=== PATIENT | male | born 1950 | race Caucasian/White ===

== ENCOUNTER 2020-04-29 06:13 | Outpatient (REF) | payer MEDICARE, SELFPAY ==
[2020-04-29 08:08] LABS: Alanine Aminotransferase 16 U/L (0-40); Albumin Level 4.5 g/dL (3.5-5.0); Alkaline Phosphatase 82 U/L (39-117); Anion Gap 11 (12-20); Aspartate Amino Transferase 24 U/L (5-37); Bilirubin Total 0.5 mg/dL (0.0-1.0); Blood Urea Nitrogen 13 mg/dL (9-16); Calcium 9.4 mg/dL (8.4-10.2); Carbon Dioxide 35 mmol/L (22-29); Chloride 94 mmol/L (96-108); Cholesterol 199 mg/dL; Estimated Glomerular Filt Rate > 60; Glucose Fasting 100 mg/dL (60-99); HDL Cholesterol 47 mg/dL; LDL Cholesterol Calculated 130 mg/dl; Potassium 3.9 mmol/l (3.3-5.1); Sodium 136 mmol/L (135-145); Total Protein 7.1 g/dL (6.5-8.0); Triglycerides 112 mg/dL
== END 2020-04-29 06:14 | disposition home or self-care (01) ==
LOC: HO.LAB 06:13
PROVIDERS: PCP Physician Assistant; Visit Provider Physician Assistant
DX: E78.9 Disorder of lipoprotein metabolism, unspecified (principal); I10 Essential (primary) hypertension
CPT/HCPCS: 80053; 80061

== ENCOUNTER 2020-10-29 06:05 | Outpatient (REF) | payer MEDICARE, SELFPAY ==
[2020-10-29 07:19] LABS: Hematocrit 42.4 % (42-52); Hemoglobin 13.8 g/dl (14.0-18.0); Mean Corpuscular HGB Conc 32.5 g/dl (31.0-36.0); Mean Corpuscular Hemoglobin 30.3 pg (27.0-33.0); Mean Corpuscular Volume 93.2 fL (80-98); Mean Platelet Volume 11.6 fL (9.4-12.4); Platelet Count 245 X10*3/uL (160-400); Red Blood Count 4.55 X10*6/uL (4.60-5.80); Red Cell Distribution Width 12.6 % (11.0-16.0); White Blood Count 6.9 X10*3/uL (4.8-10.8)
[2020-10-29 07:41] LABS: Alanine Aminotransferase 13 U/L (0-40); Albumin Level 4.6 g/dL (3.5-5.0); Alkaline Phosphatase 78 U/L (39-117); Anion Gap 14 (12-20); Aspartate Amino Transferase 22 U/L (5-37); Bilirubin Total 0.7 mg/dL (0.0-1.0); Blood Urea Nitrogen 12 mg/dL (9-16); Calcium 9.9 mg/dL (8.4-10.2); Carbon Dioxide 31 mmol/L (22-29); Chloride 97 mmol/L (96-108); Cholesterol 204 mg/dL; Estimated Glomerular Filt Rate > 60; Glucose Fasting 106 mg/dL (60-99); HDL Cholesterol 45 mg/dL; LDL Cholesterol Calculated 132 mg/dl; Potassium 4.5 mmol/L (3.3-5.1); Sodium 137 mmol/L (135-145); Total Protein 7.3 g/dL (6.5-8.0); Triglycerides 136 mg/dL
[2020-10-29 07:41] LABS: Microalbum/Creatinine Ratio Ur 18.2 ug/mg cr
[2020-10-29 08:02] LABS: Prostate Specific Antigen Scr 1.69 ng/mL (<0.05-4.0); TSH reflex Free T4 0.68 uIU/mL (0.32-4.0)
== END 2020-10-29 06:06 | disposition home or self-care (01) ==
LOC: HO.LAB 06:05
PROVIDERS: PCP Physician Assistant; Visit Provider Physician Assistant
DX: Z12.5 Encounter for screening for malignant neoplasm of prostate (principal); I10 Essential (primary) hypertension
CPT/HCPCS: 36415; 80053; 80061; 82043; 84153; 84443; 85027

== ENCOUNTER 2021-04-28 06:08 | Outpatient (REF) | payer MEDICARE, SELFPAY ==
[2021-04-28 07:18] LABS: Hematocrit 43.3 % (42.0-52.0); Hemoglobin 14.2 g/dl (14.0-18.0); Mean Corpuscular HGB Conc 32.8 g/dl (31.0-36.0); Mean Corpuscular Hemoglobin 30.7 pg (27.0-33.0); Mean Corpuscular Volume 93.7 fL (80.0-98.0); Mean Platelet Volume 11.1 fL (9.4-12.4); Platelet Count 274 X10*3/uL (160-400); Red Blood Count 4.62 X10*6/uL (4.60-5.80); Red Cell Distribution Width 12.6 % (11.0-16.0); White Blood Count 7.3 X10*3/uL (4.8-10.8)
[2021-04-28 07:52] LABS: Alanine Aminotransferase 22 U/L (0-40); Albumin Level 4.7 g/dL (3.5-5.0); Alkaline Phosphatase 75 U/L (39-117); Anion Gap 11 (12-20); Aspartate Amino Transferase 32 U/L (5-37); Bilirubin Total 0.5 mg/dL (0.0-1.0); Blood Urea Nitrogen 11 mg/dL (9-16); Calcium 10.2 mg/dL (8.4-10.2); Carbon Dioxide 32 mmol/L (22-29); Chloride 99 mmol/L (96-108); Cholesterol 230 mg/dL; Estimated Glomerular Filt Rate > 60; Glucose Fasting 105 mg/dL (60-99); HDL Cholesterol 48 mg/dL; LDL Cholesterol Calculated 167 mg/dl; Potassium 4.9 mmol/L (3.3-5.1); Sodium 137 mmol/L (135-145); Total Protein 7.4 g/dL (6.5-8.0); Triglycerides 75 mg/dL
[2021-04-28 08:14] LABS: TSH reflex Free T4 1.18 uIU/mL (0.32-4.0)
[2021-04-28 08:31] LABS: Estimated Average Glucose 114 mg/dL; Hemoglobin A1c % 5.6 %
== END 2021-04-28 06:09 | disposition home or self-care (01) ==
LOC: HO.LAB 06:08
PROVIDERS: PCP Physician Assistant; Visit Provider Physician Assistant
DX: I10 Essential (primary) hypertension (principal)
CPT/HCPCS: 36415; 80053; 80061; 83036; 84443; 85027

== ENCOUNTER → 2021-06-22 13:16 | Outpatient (BNVA) | payer MEDICARE, SELFPAY | PROVIDERS: PCP Physician Assistant; Referring Provider Physician Assistant; Visit Provider Surgery | DX: K40.90 Unilateral inguinal hernia, without obstruction or gangrene, not specified as recurrent (principal); I10 Essential (primary) hypertension; E78.5 Hyperlipidemia, unspecified; N40.0 Benign prostatic hyperplasia without lower urinary tract symptoms; F17.210 Nicotine dependence, cigarettes, uncomplicated; Z88.8 Allergy status to other drugs, medicaments and biological substances; Z79.899 Other long term (current) drug therapy | CPT/HCPCS: 99202 ==

== ENCOUNTER 2021-08-23 06:00 | Day surgery (SDC) | payer MEDICARE, SELFPAY ==
[2021-08-17 10:53] VITALS: BMI 24.2
[2021-08-23] VITALS (11 sets, daily range): BP systolic 127–150; BP diastolic 64–86; PULSE 54–76; RESP 12–18; TEMP 36.6–37.1; O2SAT 95–98
--- NOTE | 2021-08-23 06:57 | P.CONAN_ITS ---
[facility] Active Problems Active Problems: All Active Problems (Updated 08/17/21 @ 10:48 by Addis Henry RN) Elevated CO2 level (Acute) H/O ulcerative colitis (Acute) Medicare annual wellness visit, initial (Acute) Urinary frequency (Acute) Left inguinal hernia (Acute) HTN (hypertension) (Acute) HLD (hyperlipidemia) (Acute) BPH (benign prostatic hyperplasia) (Acute) Past Medical History Medical History (Updated 08/17/21 @ 10:48 by Addis Henry RN) BPH (benign prostatic hyperplasia) HLD (hyperlipidemia) HTN (hypertension) Ulcerative colitis Family History Family History Father AAA (abdominal aortic aneurysm) Hypertension Mother AAA (abdominal aortic aneurysm) Daughter In good health Brother In good health Family history of problems with anesthesia: No Surgical History Surgical History History of colonoscopy No pertinent past surgical history History of Problems with Anesthesia: No Social History Social History Alcohol intake: former Patient Tobacco Use Status: Never used Tobacco Tobacco use type: Cigarette e-Cigarette/Vaping Use: Never Used Second Hand Smoke Exposure: No Are you DNR?: No Advance Directives: No Advance Directives Information Provided: Yes Nutrition Risks: No Nutritional Risk Meds Allergies Allergy/AdvReac Type Severity Reaction Status Date / Time tamsulosin AdvReac Intermediate fatigue Verified 08/17/21 10:45 Home Medications Medication Instructions Recorded Confirmed Last Taken Type balsalazide 750 mg capsule 2,250 mg PO TID 05/17/20 08/17/21 Unknown History (Colazal) Exam Exam Date and Time: August 23, 2021 0657 Height,Weight and Vital Signs: Height 5 ft 9 in Weight 74.389 kg Last Vital Signs Temp 98 F 08/23/21 06:03 Pulse 76 08/23/21 06:03 Resp 18 08/23/21 06:03 BP 140/86 H 08/23/21 06:03 Pulse Ox 97 08/23/21 06:03 Airway Mallampati Class: II TM Dist: >3cm Neck ROM: Full Denture: Upper Assessment and Plan Assessment Anesthesia Assessment: Anesthesia Plan Discussed and Chart Reviewed Final Anesthetic Review Family History of Problems with Anesthesia: No History of Problems with Anesthesia: No NPO: Yes ASA Class: II Final Preanesthetic Review: No Changes in Pt Med Stat, Meds/Allgs Chart Reviewed, Consent Obtained/Reviewed and Anes Risks/Benef Reviewed Patient Risk: Intermediate Procedure Risk: Intermediate Anesthetic Plan Anesthetic Plan: GA Disposition: Standard PACU
--- NOTE | 2021-08-23 07:26 | MHC.SHP ---
Pre-Procedural Eval Section A Date of Service: 08/23/21 Section B Chief Complaint: Left Inguinal Hernia Details of Present Illness: has had reducible mass on left groinx almost 1 year, getting bigger, more pain Relevant Family History (Specify if Yes): No Relevant Social History: None Present Medications: see Short Stay Collaborative assessment Medical History: Significant History (HTN, BPH, hyperlipidemia) History of Previous Operations: No relevant previous surgery Allergies: Allergies Allergy/AdvReac Type Severity Reaction Status Date / Time tamsulosin AdvReac Intermediate fatigue Verified 08/17/21 10:45 Review of Systems Sugical H&P ROS: Negative: Constitution, Cardiovascular, Respiratory, Neurological, Psychiatric, Hem-Onc, Allergic/Immunologic, Gastrointestinal, Genitourinary, Musculoskeletal, Integumentary, Endocrine and Eyes/Ears/Nose/Throat Exam Surgical H&P Exam: Normal: HEENT, Normal: Heart, Normal: Lungs, Normal: Extremities, Normal: Skin and Normal: Neurological and Significant Findings: Abdomen (mass on left groin, extending to scrotum, partially reducible) Plan Diagnosis/Plan: Unchanged I have reviewed the history and physical and performed a pertinent physical examination on my patient. No changes have occurred unless specified.
--- NOTE | 2021-08-23 08:37 | P.OP_ITS ---
Operative Note Operative Note Date of Service: 08/23/21 Narrative: Preop diagnosis: Left inguino-scrotal hernia Postop diagnosis: Left inguino-scrotal hernia, indirect Procedure: Repair of a left inguinal hernia with mesh Surgeon: Avi Fields MD judicial administrative assistant: JEANNE Marinelli Patient is a 71-year-old male with a mass on the left groin which was initially reducible. This had been increasing in size worsening pain and tenderness. This had been extending into the area of the scrotum. This was therefore consistent with a partially reducible inguinal scrotal hernia on the left. He understood the technique of repair with mesh. He was aware of the risks, benefits, and alternatives. He was brought to the operating room placed supine on the table under general anesthesia via laryngeal mask airway. The left groin was prepped and draped in the usual sterile fashion. A surgical time-out was done. The patient received cefazolin 2 g IV preoperatively. I marked my planned line of incision which was an imaginary line from the anterior superior iliac spine to the pubic ramus. I infiltrated this with lidocaine 1%. I made a short incision using blade 15. And this was carried down through the full-thickness skin subcutaneous fat until was able to visualize the external oblique aponeurosis. I bluntly dissected the aponeurosis to defy the external ring. I made an incision on the sources using blade 15. To open up the aponeurosis into the inguinal canal. Status were applied on the divided edges of the aponeurosis. I bluntly dissected the underside of the aponeurosis to create the pocket for the mesh. I then bluntly dissected the cord and its contents using my index finger until was able to pass a Sarai drain around this. This Sarai drain was used for retraction. I carefully identified the vas deferens accompanying vessels. By doing so was able to then visualize the large sac. I gently dissected the sac bluntly the rest of the cord contents until is able to reduce this to the internal ring. This was therefore an indirect hernia. I positioned a large- size plug through the internal ring. I secured with this Prolene 2 sutures to the shelving edge of the inguinal and laterally, and the internal oblique superiorly medially using the inner leaves of the plug. I then position a keyhole mesh on the floor of the canal. The tails of the mesh were passed around the cord at the level of the internal ring and were secured together with Prolene 2 sutures. I then flattened the mesh on the floor and secured this with Prolene 2-0 sutures to the shelving edge of the inguinal ligament ligament laterally, the internal oblique superiorly and medially and the pubic ramus as well. I removed the [place] drain. I irrigated copiously. I then applied viscous Marcaine/meloxicam to the underside of the fascia. I closed the external oblique aponeurosis with a running Dexon 2-0 stitch to re- create the external ring. I then more viscous Marcaine/meloxicam above the aponeurosis. The subcutaneous layer was reapposed with Dexon 3-0 interrupted sutures. Skin closure was achieved with Dexon 4-0 subcuticular running stitch. The area was infiltrated with Marcaine 0.5% for postop analgesia. Dressings were applied. The procedure was completed The patient tolerated the procedure well. There were no complications noted. Initial and final counts of sponges and instruments were correct. Estimated blood loss was about 10 cc. The patient was extubated without difficulty and transferred to the recovery room with stable vital signs.
[2021-08-23] MEDS: fentaNYL citrate/PF 100 MCG/2 ML VIAL 50 MCG IVPUSH ×2 (09:15→09:35)
[2021-08-23] MEDS: oxyCODONE HCl Immed Release 5 MG TABLET PO (09:15)
== END 2021-08-23 10:46 | disposition home or self-care (01) ==
PROVIDERS: PCP Physician Assistant; Visit Provider Surgery
PROC: (CPT 49505; principal; 2021-08-23 07:30)
DX: K40.90 Unilateral inguinal hernia, without obstruction or gangrene, not specified as recurrent (principal); I10 Essential (primary) hypertension; E78.5 Hyperlipidemia, unspecified; N40.0 Benign prostatic hyperplasia without lower urinary tract symptoms; Z79.899 Other long term (current) drug therapy; Z88.8 Allergy status to other drugs, medicaments and biological substances
CPT/HCPCS: 49505; C1781; C9399; J0690; J1100; J2250; J2405; J2795; J3010

== ENCOUNTER → 2021-09-01 11:43 | Outpatient (BNVA) | payer MEDICARE, SELFPAY | PROVIDERS: PCP Physician Assistant; Referring Provider Physician Assistant; Visit Provider Surgery | DX: Z48.815 Encounter for surgical aftercare following surgery on the digestive system (principal); Z87.19 Personal history of other diseases of the digestive system | CPT/HCPCS: 99212 ==

== ENCOUNTER → 2021-09-30 14:44 | Outpatient (BNVA) | payer MEDICARE, SELFPAY | PROVIDERS: PCP Physician Assistant; Referring Provider Physician Assistant; Visit Provider Surgery | DX: Z13.89 Encounter for screening for other disorder (principal) ==

== ENCOUNTER 2021-11-05 07:06 | Outpatient (REF) | payer MEDICARE, SELFPAY ==
[2021-11-05 07:36] LABS: Estimated Average Glucose 108 mg/dL; Hematocrit 40.9 % (42.0-52.0); Hemoglobin 13.5 g/dl (14.0-18.0); Hemoglobin A1c % 5.4 %; Mean Corpuscular Hemoglobin 30.3 pg (27.0-33.0); Mean Corpuscular Volume 91.9 fL (80.0-98.0); Mean Platelet Volume 11.3 fL (9.4-12.4); Platelet Count 232 X10*3/uL (160-400); Red Blood Count 4.45 X10*6/uL (4.60-5.80); Red Cell Distribution Width 12.6 % (11.0-16.0); White Blood Count 6.1 X10*3/uL (4.8-10.8)
[2021-11-05 07:58] LABS: Alanine Aminotransferase 14 U/L (0-40); Albumin Level 4.6 g/dL (3.5-5.0); Alkaline Phosphatase 83 U/L (39-117); Anion Gap 11 (12-20); Aspartate Amino Transferase 24 U/L (5-37); Bilirubin Total 0.7 mg/dL (0.0-1.0); Blood Urea Nitrogen 13 mg/dL (9-16); Calcium 9.4 mg/dL (8.4-10.2); Carbon Dioxide 32 mmol/L (22-29); Chloride 97 mmol/L (96-108); Cholesterol 218 mg/dL; Estimated Glomerular Filt Rate > 60; Glucose Fasting 108 mg/dL (60-99); HDL Cholesterol 50 mg/dL; LDL Cholesterol Calculated 149 mg/dl; Potassium 3.7 mmol/L (3.3-5.1); Sodium 136 mmol/L (135-145); Total Protein 7.1 g/dL (6.5-8.0); Triglycerides 99 mg/dL
[2021-11-05 08:21] LABS: Prostate Specific Antigen Scr 0.72 ng/mL (<0.05-4.0)
[2021-11-05 08:38] LABS: Creatinine Urine 120.88 mg/dL; Microalbum/Creatinine Ratio Ur 19.8 ug/mg cr
== END 2021-11-05 07:07 | disposition home or self-care (01) ==
LOC: HO.LAB 07:06
PROVIDERS: PCP Physician Assistant; Visit Provider Physician Assistant
DX: Z12.5 Encounter for screening for malignant neoplasm of prostate (principal); E78.2 Mixed hyperlipidemia; I10 Essential (primary) hypertension
CPT/HCPCS: 36415; 80053; 80061; 82043; 83036; 84153; 84443; 85027

== ENCOUNTER 2022-05-05 06:22 | Outpatient (REF) | payer MEDICARE, SELFPAY ==
[2022-05-05 07:26] LABS: Hematocrit 41.6 % (42.0-52.0); Hemoglobin 13.7 g/dl (14.0-18.0); Mean Corpuscular HGB Conc 32.9 g/dl (31.0-36.0); Mean Corpuscular Hemoglobin 30.9 pg (27.0-33.0); Mean Corpuscular Volume 93.7 fL (80.0-98.0); Mean Platelet Volume 11.7 fL (9.4-12.4); Platelet Count 245 X10*3/uL (160-400); Red Blood Count 4.44 X10*6/uL (4.60-5.80); Red Cell Distribution Width 12.1 % (11.0-16.0); White Blood Count 6.2 X10*3/uL (4.8-10.8)
[2022-05-05 08:10] LABS: Alanine Aminotransferase 15 U/L (0-40); Albumin Level 4.6 g/dL (3.5-5.0); Alkaline Phosphatase 84 U/L (39-117); Anion Gap 15 (12-20); Aspartate Amino Transferase 25 U/L (5-37); Bilirubin Total 0.8 mg/dL (0.0-1.0); Blood Urea Nitrogen 11 mg/dL (9-16); Calcium 10.1 mg/dL (8.4-10.2); Carbon Dioxide 31 mmol/L (22-29); Chloride 97 mmol/L (96-108); Cholesterol 219 mg/dL; Estimated Glomerular Filt Rate > 60; Glucose Fasting 104 mg/dL (60-99); HDL Cholesterol 45 mg/dL; LDL Cholesterol Calculated 152 mg/dl; Potassium 4.5 mmol/L (3.3-5.1); Sodium 138 mmol/L (135-145); Total Protein 7.1 g/dL (6.5-8.0); Triglycerides 113 mg/dL
[2022-05-05 08:12] LABS: Creatinine Urine 218.85 mg/dL; Microalbum/Creatinine Ratio Ur 10.9 ug/mg cr
[2022-05-05 08:19] LABS: TSH reflex Free T4 1.49 uIU/mL (0.32-4.0)
== END 2022-05-05 06:23 | disposition home or self-care (01) ==
LOC: HO.LAB 06:22
PROVIDERS: PCP Physician Assistant; Visit Provider Physician Assistant
DX: Z12.5 Encounter for screening for malignant neoplasm of prostate (principal); E78.2 Mixed hyperlipidemia; I10 Essential (primary) hypertension
CPT/HCPCS: 36415; 80053; 80061; 82043; 84153; 84443; 85027

== ENCOUNTER → 2022-07-27 13:27 | Outpatient (BNVA) | payer MEDICARE, SELFPAY | PROVIDERS: PCP Physician Assistant; Referring Provider Physician Assistant; Visit Provider Surgery | DX: K40.90 Unilateral inguinal hernia, without obstruction or gangrene, not specified as recurrent (principal) | CPT/HCPCS: 99212 ==

== ENCOUNTER 2022-09-01 08:36 | Day surgery (SDC) | payer MEDICARE, SELFPAY ==
[2022-08-29 10:23] VITALS: BMI 24.4
--- NOTE | 2022-08-31 09:19 | P.CONAN_ITS ---
HPI - Anesthesia Eval Consult details Narrative: 72yo M for Right Hernia Repair Inguinal with mesh s/p same 07/2021 with GA-LMA 5 PMFSH Active Problems Active Problems: All Active Problems (Updated 07/27/22 @ 14:01 by Avi Fields MD) Elevated CO2 level (Acute) H/O ulcerative colitis (Acute) Medicare annual wellness visit, initial (Acute) Urinary frequency (Acute) Left inguinal hernia (Acute) Annual physical exam (Acute) Hemangioma (Acute) Right inguinal hernia (Acute) HTN (hypertension) (Acute) HLD (hyperlipidemia) (Acute) BPH (benign prostatic hyperplasia) (Acute) Past Medical History Medical History BPH (benign prostatic hyperplasia) HLD (hyperlipidemia) HTN (hypertension) Right inguinal hernia Ulcerative colitis Family History Family History Father AAA (abdominal aortic aneurysm) Hypertension Mother AAA (abdominal aortic aneurysm) Daughter In good health Brother In good health Family history of problems with anesthesia: No Surgical History Surgical History History of colonoscopy History of left inguinal hernia repair (~08/23/21) History of Problems with Anesthesia: No Social History Social History Housing: House Alcohol intake: current Alcohol intake frequency: a few times a month Alcohol type: beer Patient Tobacco Use Status: Former Tobacco user Quit Date: 40 years ago Tobacco use type: Cigarette e-Cigarette/Vaping Use: Never Used Second Hand Smoke Exposure: No Current occupational status: employed 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- [employer] Cognitive needs: No Hearing needs: No Vision needs: Yes Meds Allergies Allergy/AdvReac Type Severity Reaction Status Date / Time tamsulosin AdvReac Intermediate fatigue Verified 07/27/22 13:42 Home Medications Medication Instructions Recorded Confirmed Last Taken Type balsalazide 750 mg capsule 2,250 mg PO TID 05/17/20 08/29/22 09/01/22 History (Colazal) Exam Exam Date and Time: August 31, 2022 0919 Height,Weight and Vital Signs: Height 5 ft 9 in Weight 74.843 kg Assessment and Plan Assessment Anesthesia Assessment: Chart Reviewed Final Anesthetic Review Family History of Problems with Anesthesia: No History of Problems with Anesthesia: No
[2022-09-01 09:27] VITALS: BMI 24.4
[2022-09-01 09:31] VITALS: BP 161/71; PULSE 60; RESP 18; TEMP 36.3; O2SAT 96
[2022-09-01] MEDS: Lactated Ringers 1,000 ML 100 ML IVCONT (10:00)
--- NOTE | 2022-09-01 10:02 | P.CONAN_ITS ---
[facility] Active Problems Active Problems: All Active Problems (Updated 07/27/22 @ 14:01 by Avi Fields MD) Elevated CO2 level (Acute) H/O ulcerative colitis (Acute) Medicare annual wellness visit, initial (Acute) Urinary frequency (Acute) Left inguinal hernia (Acute) Annual physical exam (Acute) Hemangioma (Acute) Right inguinal hernia (Acute) HTN (hypertension) (Acute) HLD (hyperlipidemia) (Acute) BPH (benign prostatic hyperplasia) (Acute) Past Medical History Medical History BPH (benign prostatic hyperplasia) HLD (hyperlipidemia) HTN (hypertension) Right inguinal hernia Ulcerative colitis Family History Family History Father AAA (abdominal aortic aneurysm) Hypertension Mother AAA (abdominal aortic aneurysm) Daughter In good health Brother In good health Family history of problems with anesthesia: No Surgical History Surgical History History of colonoscopy History of left inguinal hernia repair (~08/23/21) History of Problems with Anesthesia: No Social History Social History Housing: House Alcohol intake: current Alcohol intake frequency: a few times a month Alcohol type: beer Patient Tobacco Use Status: Former Tobacco user Quit Date: 40 years ago Tobacco use type: Cigarette e-Cigarette/Vaping Use: Never Used Second Hand Smoke Exposure: No Use of substances other than those prescribed or required for medical reasons: No Are you DNR?: No Advance Directives: No Advance Directives Information Provided: Yes Current occupational status: employed 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 Cognitive needs: No Hearing needs: No Vision needs: Yes Meds Allergies Allergy/AdvReac Type Severity Reaction Status Date / Time tamsulosin AdvReac Intermediate fatigue Verified 07/27/22 13:42 Active Medications: Current Medications Lactated Ringer's (Lr) 1,000 mls @ 100 mls/hr IVCONT .Q10H JORDAN Last Admin: 09/01/22 10:00 Dose: 100 mls/hr Home Medications Medication Instructions Recorded Confirmed Last Taken Type balsalazide 750 mg capsule 2,250 mg PO TID 05/17/20 08/29/22 09/01/22 History (Colazal) Exam Exam Date and Time: September 01, 2022 1002 Height,Weight and Vital Signs: Height 5 ft 9 in Weight 74.843 kg Last Vital Signs Temp 97.4 F 09/01/22 09:31 Pulse 60 09/01/22 09:31 Resp 18 09/01/22 09:31 BP 161/71 H 09/01/22 09:31 Pulse Ox 96 09/01/22 09:31 O2 Del Method Room Air 09/01/22 09:31 Airway Mallampati Class: II TM Dist: >3cm Neck ROM: Full Heart: RRR Lungs: CTA Assessment and Plan Final Anesthetic Review Family History of Problems with Anesthesia: No History of Problems with Anesthesia: No NPO: Yes ASA Class: II Final Preanesthetic Review: Meds/Allgs Chart Reviewed, Consent Obtained/Reviewed and Anes Risks/Benef Reviewed Patient Risk: Intermediate Procedure Risk: Low Anesthetic Plan Anesthetic Plan: GA Disposition: Standard PACU
--- NOTE | 2022-09-01 10:16 | MHC.SHP ---
Pre-Procedural Eval Section A Date of Service: 09/01/22 Section B Chief Complaint: Unilateral inguinal hernia, without obstruction or Details of Present Illness: Has reducible mass on the right groin consistent with a right inguinal hernia Relevant Family History (Specify if Yes): No Relevant Social History: None Present Medications: see Short Stay Collaborative assessment Medical History: Significant History ( hypertension, hyperlipidemia, BPH) Allergies: Allergies Allergy/AdvReac Type Severity Reaction Status Date / Time tamsulosin AdvReac Intermediate fatigue Verified 07/27/22 13:42 Review of Systems Sugical H&P ROS: Negative: Constitution, Cardiovascular, Respiratory, Neurological, Psychiatric, Hem-Onc, Allergic/Immunologic, Gastrointestinal, Genitourinary, Musculoskeletal, Integumentary, Endocrine and Eyes/Ears/Nose/Throat Exam Surgical H&P Exam: Normal: HEENT, Normal: Heart, Normal: Lungs, Normal: Extremities, Normal: Skin and Normal: Neurological and Significant Findings: Abdomen ( right inguinal hernia) Plan Diagnosis/Plan: Unchanged I have reviewed the history and physical and performed a pertinent physical examination on my patient. No changes have occurred unless specified. Time Spent With Patient Time: Total time managing care of this patient today ____ minutes.
--- NOTE | 2022-09-01 11:31 | W.PM.OPN ---
Operative Note Operative Note Date of Service: 09/01/22 Narrative: Preop diagnosis: Right inguinal hernia Postop diagnosis: Right inguinal hernia, indirect Procedure: Repair of right inguinal hernia with mesh Surgeon: Avi Fields MD 1st assistant department manager: JEANNE Marinelli The patient is a 72-year-old male with a reducible mass on the right groin consistent with a right inguinal hernia. He was aware of the technique of repair with mesh. He was aware of the risks, benefits, and alternatives. He was brought to the operating room. He was placed supine under general anesthesia via laryngeal mask airway. The right groin was prepped and draped in the usual sterile fashion. Betadine was used because of skin breakdown from shaving in preop area. A surgical time-out was done. The patient received cefazolin 2 g IV preoperatively I infiltrated the planned line of incision with lidocaine 1%. I made a short incision on the skin along an imaginary line from the anterior superior iliac spine to the pubic ramus using blade 15.This was carried down through the full-thickness of the skin and subcutaneous fat down to the aponeurosis With electrocautery.. External oblique neurosis was cleared. The external ring was therefore visualized. I made an incision on the external oblique aponeurosis along its fibers using blade 15. And this was extended inferomedially to connect with the external ring. the inguinal canal was therefore entered. The spermatic cord and its contents were seen. I bluntly dissected around this using my index finger until I was able to pass a [place] drain around this. This used for retraction. There was note of a hernia containing fat on the anterior medial aspect of the for attic cord. I bluntly dissected this off of the rest of the cord contents. The vas deferens and the accompanying vessels were identified and protected during the dissection. The hernia was containing fat. I was able to reduce this completely through the internal ring. I reinforced this ring with a large size plug. The plug was secured with Prolene 2 0 sutures to the shelving edge of the inguinal ligament, and the internal oblique superiorly and medially using the inner leaves of the plug. I reinforced the entire floor of the canal with a keyhole mesh. The tails of the mesh were passed around the cord at the level of the internal ring and were secured together using Prolene 2 sutures. The mesh was flattened. Applied Prolene 2-0 sutures to secure this mesh in the shelving edge of the inguinal and laterally, the pubic ramus inferomedially as well as internal oblique superiorly and medially. We observed for hemostasis. We irrigated. Once hemostasis was confirmed, I proceeded to then close the external oblique aponeurosis with a running Dexon 2-0 stitch to re-create the external ring The thick subcutaneous layer was reapposed with Dexon 3-0 interrupted sutures. Skin closure was achieved with Dexon 4-0 subcuticular running stitch. The incision was infiltrated with Marcaine 0.5% for postop ROZ. Dressings were applied. The procedure was completed The patient tolerated the procedure well. There were no immediate complications. Initial and final counts of sponges and instruments were correct. Estimated blood loss was about 10 cc. The patient was extubated without difficulty and transferred to the recovery room with stable vital signs.
[2022-09-01 11:51] VITALS: BP 141/79; PULSE 63; RESP 15; TEMP 36.9; O2SAT 98
[2022-09-01 11:56] VITALS: BP 162/80; PULSE 64; RESP 13; O2SAT 95
[2022-09-01 12:00] VITALS: BP 145/81; PULSE 60; RESP 13; O2SAT 95
--- NOTE | 2022-09-01 12:01 | HO.POSTANES ---
Post Anesthesia Evaluation Post Anesthesia Evaluation Vital Signs: Vital Signs Temp Pulse Resp BP Pulse Ox O2 Del Method O2 Flow Rate 09/01/22 11:51 98.4 F 63 15 141/79 H 98 Simple Mask 5 09/01/22 09:31 97.4 F 60 18 161/71 H 96 Room Air Anesthesia: General LMA Mental Status: Awake Pain Control: Satisfactory Nausea/Vomiting: None Hydration: Adequate Anesthesia-Related Issues: No Anes. Related Issues
[2022-09-01 12:05] VITALS: BP 142/67; PULSE 58; RESP 13; O2SAT 97
[2022-09-01 12:20] VITALS: BP 120/77; PULSE 59; RESP 14; O2SAT 97
== END 2022-09-01 12:55 | disposition home or self-care (01) ==
PROVIDERS: PCP Physician Assistant; Visit Provider Surgery
PROC: (CPT 49520; principal; 2022-09-01 10:20)
DX: K40.90 Unilateral inguinal hernia, without obstruction or gangrene, not specified as recurrent (principal); Z87.19 Personal history of other diseases of the digestive system; E78.5 Hyperlipidemia, unspecified; I10 Essential (primary) hypertension; N40.0 Benign prostatic hyperplasia without lower urinary tract symptoms; Z79.899 Other long term (current) drug therapy; Z79.1 Long term (current) use of non-steroidal anti-inflammatories (NSAID); Z88.8 Allergy status to other drugs, medicaments and biological substances; Z87.891 Personal history of nicotine dependence
CPT/HCPCS: 49520; C1781; J0461; J0690; J1100; J2250; J2405; J2795; J3010

== ENCOUNTER → 2022-09-14 09:22 | Outpatient (BNVA) | payer MEDICARE, SELFPAY | PROVIDERS: PCP Physician Assistant; Referring Provider Physician Assistant; Visit Provider Surgery | DX: K40.90 Unilateral inguinal hernia, without obstruction or gangrene, not specified as recurrent (principal) | CPT/HCPCS: 99212 ==

== ENCOUNTER → 2022-10-18 15:42 | Outpatient (BNVA) | payer MEDICARE, SELFPAY | PROVIDERS: PCP Physician Assistant; Visit Provider Surgery | DX: Z09 Encounter for follow-up examination after completed treatment for conditions other than malignant neoplasm (principal); Z87.19 Personal history of other diseases of the digestive system | CPT/HCPCS: 99212 ==

== ENCOUNTER 2022-12-29 06:14 | Outpatient (REF) | payer MEDICARE, SELFPAY ==
[2022-12-29 07:42] LABS: Hematocrit 40.9 % (42.0-52.0); Hemoglobin 13.3 g/dl (14.0-18.0); Mean Corpuscular HGB Conc 32.5 g/dl (31.0-36.0); Mean Corpuscular Hemoglobin 30.2 pg (27.0-33.0); Mean Platelet Volume 11.5 fL (9.4-12.4); Platelet Count 239 X10*3/uL (160-400); White Blood Count 6.8 X10*3/uL (4.8-10.8)
[2022-12-29 08:00] LABS: Alanine Aminotransferase 14 U/L (0-40); Albumin Level 4.4 g/dL (3.5-5.0); Alkaline Phosphatase 80 U/L (39-117); Anion Gap 15 (12-20); Aspartate Amino Transferase 22 U/L (5-37); Bilirubin Total 0.6 mg/dL (0.0-1.0); Blood Urea Nitrogen 12 mg/dL (9-16); Carbon Dioxide 27 mmol/L (22-29); Chloride 96 mmol/L (96-108); Cholesterol 197 mg/dL (<200); Estimated Glomerular Filt Rate > 60; Glucose Fasting 100 mg/dL (60-99); HDL Cholesterol 46 mg/dL (>40); LDL Cholesterol Calculated 132 mg/dL (<100); Potassium 3.3 mmol/L (3.3-5.1); Sodium 135 mmol/L (135-145); Triglycerides 95 mg/dL (<150)
[2022-12-29 08:18] LABS: TSH reflex Free T4 1.23 uIU/mL (0.32-4.0)
== END 2022-12-29 06:15 | disposition home or self-care (01) ==
LOC: HO.LAB 06:14
PROVIDERS: PCP Physician Assistant; Visit Provider Physician Assistant
DX: E78.2 Mixed hyperlipidemia (principal); I10 Essential (primary) hypertension
CPT/HCPCS: 36415; 80053; 80061; 84443; 85027

== ENCOUNTER 2023-02-21 14:53 | Outpatient (AMB) | payer MEDICARE, SELFPAY ==
--- NOTE | 2023-02-21 15:01 | MHC.PC.OV ---
Vital Signs 02/21/23 15:02 Height 5 ft 9 in Weight 163 lb BMI 24.1 BP 166/84 H Blood Pressure Location Lt brachial Position Sitting Respiration 16 Pulse 60 Pulse Source Pulse Oximeter Pulse Oximetry (%) 96 Oxygen Delivery Method Room Air Intake Visit Reasons: Follow up Intake Note: Patient is here to follow up on HTN. Barrel Header Required: No Accompanied by: Self / Same As Patient Allergies tamsulosin Adverse Reaction (Intermediate, Verified 02/21/23 15:17) fatigue Medication List - Last Reconciled 02/21/23 by Teto Lucero PA-C balsalazide (Colazal) 2,250 mg PO TID tstsbeswmv-sicsbyjqa-deewchndc 40-5-25 mg 1 tab PO DAILY Tobacco use date assessed: 07/11/22 Fall risk assessment: No Falls in past year Last assessed Fall Risk: 02/21/23 Dental Screening Dental Screen Date: 02/21/23 Did you have a dental visit in the last 12 months?: Yes Did you have a dental problem in the last 6 months where you did not have access to dental care?: No Was dental information given to patient?: Patient has dentist HPI Follow up HPI Details Surya is a 73y/o M here today for a f/u visit . Patient has a past medical history of hypertension, colitis, hyperlipidemia. B/L inguinal hernia--> has underwent hernia surgery has recovered well. BPH:? He reports he does continue to have nocturia at times and some weakness of stream. Most recent PSA normal .. Inflammatory bowel disease: Continues to follow gastroenterology and recently got colonoscopy with biopsy showing some mild active colitis. Still from time to time has is some lower abdominal pain and loose stools though reports has been manageable.. ? . ? Hypertension; today's blood pressure in office elevated, does seldomly checks blood pressures at home and reports normal readings. ?He denies any chest pain, dizziness, shortness of breath, lower extremity edema. .? He reports his diet has not been compliant with hypertension diet has had a lot sodium over the holiday season.? .. Hyperlipidemia:? Most recent lipid panel much improved. Will continue to work on lifestyle modifications to reduce his cholesterol. Laboratory Tests 05/05/22 12/29/22 06:30 06:21 RBC 4.40 L Hgb 13.3 L Fasting Glucose 100 H Cholesterol 197 LDL Cholesterol, C alc 132 H TSH 1.23 Urine Microalbumin 24.0 PFSH Medical History BPH (benign prostatic hyperplasia) HLD (hyperlipidemia) HTN (hypertension) Right inguinal hernia Ulcerative colitis Surgical History History of right inguinal hernia repair (~09/01/22) History of left inguinal hernia repair (~08/23/21) History of colonoscopy Family History Father AAA (abdominal aortic aneurysm) Hypertension Mother AAA (abdominal aortic aneurysm) Daughter In good health Brother In good health Social History Housing: House Alcohol intake: current Alcohol intake frequency: a few times a month Alcohol type: beer Patient Tobacco Use Status: Former Tobacco user Quit Date: 40 years ago Tobacco use type: Cigarette e-Cigarette/Vaping Use: Never Used Second Hand Smoke Exposure: No service: No Current occupational status: employed 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 Curt Gonsalez, Monet Rios, Bang Marrero and colleagues, with an educational anupama from [employer]. Review of Systems Const Denies headache(s) Eyes Denies loss of vision ENT Denies vertigo, Denies dizziness, Denies headache(s) and Denies sore throat Card Denies chest pain, Denies leg edema and Denies lightheadedness Resp Denies cough, Denies hemoptysis and Denies wheezing GI Denies abdominal pain, Denies melena, Denies constipation, Denies diarrhea and Denies vomiting Denies dysuria, Denies urinary frequency and Denies urinary urgency Musc Denies arthralgias, Denies joint swelling, Denies numbness and Denies tingling Neuro Denies Abnormal speech present, Denies behavioral changes, Denies vertigo, Denies dizziness, Denies headache(s), Denies loss of vision, Denies memory loss, Denies numbness and Denies tingling Psych Denies anxiety, Denies behavioral changes, Denies depression, Denies memory loss and Denies panic attacks Scot/Lymph Denies easy bleeding and Denies easy bruising Aller/Immun Denies wheezing Physical exam (Primary Care) Vital Signs: Last Vital Signs Pulse 60 02/21/23 15:02 Resp 16 02/21/23 15:02 BP 166/84 H 02/21/23 15:02 Pulse Ox 96 02/21/23 15:02 Oxygen Delivery Method Room Air 02/21/23 15:02 BMI result Body Mass Index 24.1 Tobacco/Smoking Status: Tobacco use Status Tobacco use date assessed 07/11/22 02/21/23 15:01 Patient Tobacco Use Status Former Tobacco user 02/21/23 15:01 Tobacco use type Cigarette 02/21/23 15:01 e-Cigarette/Vaping Use Never Used 02/21/23 15:01 Thrive Assessment: Date of Thrive Assessment Date Thrive assessed 07/11/22 02/21/23 15:01 Const General: healthy appearing, no acute distress, alert and awake Nutritional Appearance: well nourished Orientation/consciousness: oriented to person, oriented to place and oriented to time HENMT Ears: TM's normal bilaterally General nose exam: Normal nasal mucous membranes and turbinates present Eyes Conjunctivae: conjunctivae normal Sclerae: sclerae normal Pupils: Equal, round and reactive pupils present Neck Neck: Yes no lymphadenopathy and Yes no JVD Thyroid: Thyroid normal Carotids: no bruits Resp Effort & Inspection: normal respiratory effort and not tachypneic Auscultation: no crackles, no rales, no rhonchi and no wheezes Cardio Rate: regular rate Rhythm: regular rhythm Heart sounds: no murmurs and normal S1 and S2 GI Palpation (GI): Soft to palpation, nontender, no hepatomegaly and no splenomegaly Auscultation: normal bowel sounds Skin General skin exam: no rashes or lesions noted and dry skin Neuro General: oriented to person, oriented to place and oriented to time Cranial nerves: Yes Equal, round and reactive pupils present Speech: No Abnormal speech present Gait exam (Neuro): Normal gait present Motor exam (neuro): no tremor noted Extrem Right upper extremity: full ROM Left upper extremity: full ROM Right lower extremity: full ROM; no edema Left lower extremity: full ROM; no edema Psych Mental Status: mental status grossly normal Speech and movement: Normal speech and movement present Affect: normal affect Attitude: cooperative Thought process: Normal thought process present Office Procedures Flu Questionnaire Does the patient have a severe egg allergy?: No Does the patient have severe life threatening allergies?: No Does the patient have a fever or illness today?: No Has the patient ever had Guillain-[place] Syndrome?: No Has the patient ever had any past reaction to a flu shot?: No Immunizations flu vacc [id number] 6mos up(PF) 60 mcg(15 mcgx4)/0.5 mL IM syringe Performing Provider: Teto Lucero PA-C [facility] Administered by: POPEYE Ryan on 02/21/23 15:08 Dose Route Admin Location Dispensed Lot Number Expiration Date NDC Clinical Lab Assistant 0.5 mL IM Left Deltoid 0.5 mL [id number] 10/28/23 [id number] [email or web address] VIS Given Date VIS Provided VIS Publication Date 02/21/23 Single Vaccine 20 Eligibility Eligibility Date Funding Source Not [facility] Eligible 02/21/23 Private Assessment and Plan Assessment & Plan (1) HTN (hypertension): Code(s): I10 - Essential (primary) hypertension Qualifiers: Hypertension type: essential hypertension Qualified Code(s): I10 - Essential (primary) hypertension Plan: Blood pressure elevated today in office. He reports that blood pressures are stable, He reports having high sodium meal before his appointment. He will monitor blood pressure at home with goal blood pressure remain below 140/90 .. (2) H/O ulcerative colitis: Code(s): Z87.19 - Personal history of other diseases of the digestive system Plan: Followed by frame expander, did have a repeat colonoscopy in 2022 showing mild active colitis.. Otherwise he denies any rapid weight loss, abdominal pain or increase soft watery stools or blood in the stools. (3) HLD (hyperlipidemia): Code(s): E78.5 - Hyperlipidemia, unspecified Qualifiers: Hyperlipidemia type: mixed hyperlipidemia Qualified Code(s): E78.2 - Mixed hyperlipidemia Plan: Patient's most recent lipid panel somewhat improved. Will continue to work on lifestyle modifications to reduce his high cholesterol foods. Goal LDL to be below 160 (4) Anemia of chronic disease: Code(s): D63.8 - Anemia in other chronic diseases classified elsewhere Plan: Noted chronic anemia likely anemia of chronic disease. Normal MCV. Will continue to follow CBC. Orders: Orders Influenza [id number] Immunization 02/21/23 Z23 - Encounter for immunization Lipid Panel 02/21/23 E78.2 - Mixed hyperlipidemia Microalbumin, Random (w Creat) 02/21/23 I10 - Essential (primary) hypertension Comprehensive [place]. Panel Fast 02/21/23 E78.2 - Mixed hyperlipidemia Prostate Specific Antigen Scr 02/21/23 E78.2 - Mixed hyperlipidemia, Z12.5 - Encounter for screening for malignant neoplasm of prostate Complete Blood Count no Diff 02/21/23 D63.8 - Anemia in other chronic diseases classified elsewhere IRON PROFILE 02/21/23 D50.9 - Iron deficiency anemia, unspecified, D63.8 - Anemia in other chronic diseases classified elsewhere Vitamin B12 and Folate 02/21/23 D63.8 - Anemia in other chronic diseases classified elsewhere, E53.8 - Deficiency of other specified B group vitamins Coding Level of Care Code Est Pt Level 4 (41322) Diagnoses Essential hypertension I10 Hypertension type: essential hypertension H/O ulcerative colitis Z87.19 Mixed hyperlipidemia E78.2 Hyperlipidemia type: mixed hyperlipidemia Anemia of chronic disease D63.8
[2023-02-21 15:02] VITALS: BP 166/84; PULSE 60; RESP 16; O2SAT 96; BMI 24.1
== END 2023-02-21 15:31 | disposition home or self-care (01) ==
PROVIDERS: PCP Physician Assistant; Visit Provider Physician Assistant
DX: Z23 Encounter for immunization (principal)
CPT/HCPCS: 90471; 90686; 99214

== ENCOUNTER 2023-08-03 06:09 | Outpatient (REF) | payer MEDICARE, SELFPAY ==
[2023-08-03 07:02] LABS: Hematocrit 41.2 % (42.0-52.0); Hemoglobin 13.7 g/dl (14.0-18.0); Mean Corpuscular HGB Conc 33.3 g/dl (31.0-36.0); Mean Corpuscular Hemoglobin 31.1 pg (27.0-33.0); Mean Corpuscular Volume 93.4 fL (80.0-98.0); Mean Platelet Volume 11.5 fL (9.4-12.4); Platelet Count 225 X10*3/uL (160-400); Red Blood Count 4.41 X10*6/uL (4.60-5.80); Red Cell Distribution Width 12.5 % (11.0-16.0); White Blood Count 6.3 X10*3/uL (4.8-10.8)
[2023-08-03 07:22] LABS: Alanine Aminotransferase 14 U/L (0-40); Albumin Level 4.4 g/dL (3.5-5.0); Alkaline Phosphatase 79 U/L (39-117); Anion Gap 11 (12-20); Aspartate Amino Transferase 26 U/L (5-37); Blood Urea Nitrogen 14 mg/dL (9-16); Calcium 9.9 mg/dL (8.4-10.2); Carbon Dioxide 33 mmol/L (22-29); Chloride 97 mmol/L (96-108); Cholesterol 208 mg/dL (<200); Estimated Glomerular Filt Rate > 60; Glucose Fasting 104 mg/dL (60-99); HDL Cholesterol 47 mg/dL (>40); Iron 116 mcg/dL (45-160); LDL Cholesterol Calculated 138 mg/dL (<100); Percent Iron Saturation 38 % (15-50); Potassium 3.6 mmol/L (3.3-5.1); Sodium 137 mmol/L (135-145); Total Iron Binding Capacity 309 mcg/dL (228-428); Total Protein 7.3 g/dL (6.5-8.0); Triglycerides 117 mg/dL (<150); Unsaturated Iron Binding 193 ug/dL
[2023-08-03 07:37] LABS: Bilirubin Total 0.6 mg/dL (0.0-1.0)
[2023-08-03 07:53] LABS: Folate 12.9 ng/mL (> or = 4.0); Prostate Specific Antigen Scr 1.65 ng/mL (<0.05-4.0); Vitamin B12 744 pg/mL (200-900)
[2023-08-03 08:07] LABS: Creatinine Urine 128.66 mg/dL; Microalbum/Creatinine Ratio Ur 19.4 ug/mg cr (<30)
== END 2023-08-03 06:10 | disposition home or self-care (01) ==
LOC: HO.LAB 06:09
PROVIDERS: PCP Physician Assistant; Visit Provider Physician Assistant
DX: I10 Essential (primary) hypertension (principal); D50.9 Iron deficiency anemia, unspecified; E78.2 Mixed hyperlipidemia; D63.8 Anemia in other chronic diseases classified elsewhere; E53.8 Deficiency of other specified B group vitamins; Z12.5 Encounter for screening for malignant neoplasm of prostate
CPT/HCPCS: 36415; 80053; 80061; 82043; 82570; 82607; 82746; 83540; 84153; 85027

== ENCOUNTER 2023-08-23 13:57 | Outpatient (AMB) | payer MEDICARE, SELFPAY ==
--- NOTE | 2023-08-23 13:58 | MHC.PC.OV ---
Vital Signs 08/23/23 13:59 Height 5 ft 9 in Weight 166 lb 4 oz BMI 24.5 BP 146/96 H Blood Pressure Location Lt brachial Position Sitting Pulse 55 Pulse Source Pulse Oximeter Pulse Oximetry (%) 97 Oxygen Delivery Method Room Air Intake Visit Reasons: f/u HT/ HLD/ anemia Trimmer Sawyer Required: No Accompanied by: Self / Same As Patient Allergies tamsulosin Adverse Reaction (Intermediate, Verified 08/23/23 14:07) fatigue Medication List - Last Reconciled 08/23/23 by Teto Lucero PA-C balsalazide (Colazal) 2,250 mg PO TID yahpbggokb-gxidwnlcx-qxzxfrndw 40-5-25 mg 1 tab PO DAILY Tobacco use date assessed: 08/23/23 Fall risk assessment: No Falls in past year Last assessed Fall Risk: 08/23/23 Dental Screening Dental Screen Date: 08/23/23 Did you have a dental visit in the last 12 months?: Yes Did you have a dental problem in the last 6 months where you did not have access to dental care?: No Was dental information given to patient?: Patient has dentist HPI f/u HT/ HLD/ anemia HPI Details Surya is a 73y/o M here today for a f/u visit . Patient has a past medical history of hypertension, colitis, hyperlipidemia. BPH:? He reports he does continue to have nocturia at times and some weakness of stream. Most recent PSA normal .. Inflammatory bowel disease: Continues to follow gastroenterology and recently got colonoscopy with biopsy showing some mild active colitis. Still from time to time has is some lower abdominal pain and loose stools though reports has been manageable.. ? . ? Hypertension; today's blood pressure in office elevated, does seldomly checks blood pressures at home and reports normal readings. Seems to have an element of white coat hypertension. ?He denies any chest pain, dizziness, shortness of breath, lower extremity edema. .? He reports his diet has not been compliant with hypertension diet has had a lot sodium over the holiday season.? .. Hyperlipidemia:? Most recent lipid panel showing slightly borderline high cholesterol. He does admit to some dietary indiscretion over the winter. Will continue to work on lifestyle modifications to reduce his cholesterol. Laboratory Tests 08/03/23 08/03/23 06:24 06:27 RBC 4.41 L Hgb 13.7 L Creatinine 0.72 Fasting Glucose 104 H Cholesterol 208 H LDL Cholesterol, C alc 138 H PSA Screen 1.65 Vitamin B12 744 Urine Microalbumin 25.0 PFSH Medical History Right inguinal hernia Ulcerative colitis BPH (benign prostatic hyperplasia) HLD (hyperlipidemia) HTN (hypertension) Surgical History History of right inguinal hernia repair (~09/01/22) History of left inguinal hernia repair (~08/23/21) History of colonoscopy Family History Father AAA (abdominal aortic aneurysm) Hypertension Mother AAA (abdominal aortic aneurysm) Daughter In good health Brother In good health Social History Housing: House Alcohol intake: current Alcohol intake frequency: a few times a month Alcohol type: beer Patient Tobacco Use Status: Former Tobacco user Quit Date: 40 years ago Tobacco use type: Cigarette e-Cigarette/Vaping Use: Never Used Second Hand Smoke Exposure: No service: No Current occupational status: employed 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 1. Little interest or pleasure in doing things: not at all 2. Feeling down, depressed, or hopeless: not at all 3. Trouble falling or staying asleep, or sleeping too much: not at all 4. Feeling tired or having little energy: not at all 5. Poor appetite or overeating: not at all 6. Feeling bad about yourself - or that you are a failure or have let yourself or your family down: not at all 7. Trouble concentrating on things, such as reading the newspaper or watching television: not at all 8. Moving or speaking so slowly that other people could have noticed. Or the opposite - being so fidgety or restless that you have been moving around a lot more than usual: not at all 9. Thoughts that you would be better off or of hurting yourself in some way: not at all Total score: 0 Depression Screening Interpretation: Negative Depression Screening Done: Yes [id number] - PHQ-9 Billing: Yes Source: Developed by Drs. Curt Gonsalez, Monet Rios, Bang Marrero and colleagues, with an educational anupama from [employer]. Thrive Questionnaire Date Thrive assessed: 08/23/23 I am a: Patient What is your living situation today?: I have a steady place to live Within the past 12 months, did the food you bought not last and you didn't have the money to get more?: Never true Within the past 12 months, did you worry whether your food would run out before you got money to buy more?: Never true Do you have trouble paying for medicines?: No Do you have trouble getting transportation to medical appointments?: No Do you have trouble paying your heating and electricity bill?: No Do you have trouble taking care of your child, family member or friend?: No Do you have trouble with day-to-day activities such as bathing, preparing meals, shopping, managing finances, etc.?: No Are you currently unemployed and looking for a job?: No Are you interested in more education?: No Please select the resources that you would like help with: None Currently or been in a relationship where the following occur: no concerns reported THRIVE Score: 0 AUDIT C Alcohol Use Questionnaire (AUDIT-C) 1. How often do you have a drink containing alcohol?: Never 3. How often do you have six or more drinks on one occasion?: Never Total Score: 0 ARIADNE-7 AMB Questionnaire ARIADNE-7 Date ARIADNE - 7 assessed: 08/23/23 Feeling nervous, anxious, or on edge: 0 = Not at all Not being able to stop or control worryin = Not at all Worrying too much about different things: 0 = Not at all Trouble relaxin = Not at all Being so restless that it is hard to sit still: 0 = Not at all Becoming easily annoyed or irritable: 0 = Not at all Feeling afraid as if something awful might happen: 0 = Not at all Total ARIADNE-7 score (0-4 normal; 5-9 mild; 10-14 moderate; 15-21 severe): 0 Source: Developed by Drs. Curt Gonsalez, Monet Rios, Bang Marrero and colleagues, with an educational anupama from [employer]. ARIADNE-7 Assessment Billing ARIADNE-7 Assessment Tool: ARIADNE-7 Assessment 94673 Review of Systems Const Denies headache(s) Eyes Denies loss of vision ENT Denies vertigo, Denies dizziness, Denies headache(s) and Denies sore throat Card Denies chest pain, Denies leg edema and Denies lightheadedness Resp Denies cough, Denies hemoptysis and Denies wheezing GI Denies abdominal pain, Denies melena, Denies constipation, Denies diarrhea and Denies vomiting Denies dysuria, Denies urinary frequency and Denies urinary urgency Musc Denies arthralgias, Denies joint swelling, Denies numbness and Denies tingling Neuro Denies Abnormal speech present, Denies behavioral changes, Denies vertigo, Denies dizziness, Denies headache(s), Denies loss of vision, Denies memory loss, Denies numbness and Denies tingling Psych Denies anxiety, Denies behavioral changes, Denies depression, Denies memory loss and Denies panic attacks Scot/Lymph Denies easy bleeding and Denies easy bruising Aller/Immun Denies wheezing Physical exam (Primary Care) Vital Signs: Last Vital Signs Pulse 55 08/23/23 13:59 BP 146/96 H 08/23/23 13:59 Pulse Ox 97 08/23/23 13:59 Oxygen Delivery Method Room Air 08/23/23 13:59 BMI result Body Mass Index 24.5 Tobacco/Smoking Status: Tobacco use Status Tobacco use date assessed 08/23/23 08/23/23 14:06 Patient Tobacco Use Status Former Tobacco user 08/23/23 14:00 Tobacco use type Cigarette 08/23/23 14:00 e-Cigarette/Vaping Use Never Used 08/23/23 14:00 PHQ-9: PHQ-9 Score PHQ-9: Total score 0 08/23/23 14:09 Depression Screening Interpretation: Negative Thrive Assessment: Date of Thrive Assessment Date Thrive assessed 08/23/23 08/23/23 14:06 Currently or been in a relationship where the following occur: no concerns reported Const General: healthy appearing, no acute distress, alert and awake Nutritional Appearance: well nourished Orientation/consciousness: oriented to person, oriented to place and oriented to time HENMT Ears: TM's normal bilaterally General nose exam: Normal nasal mucous membranes and turbinates present Eyes Conjunctivae: conjunctivae normal Sclerae: sclerae normal Pupils: Equal, round and reactive pupils present Neck Neck: Yes no lymphadenopathy and Yes no JVD Thyroid: Thyroid normal Carotids: no bruits Resp Effort & Inspection: normal respiratory effort and not tachypneic Auscultation: no crackles, no rales, no rhonchi and no wheezes Cardio Rate: regular rate Rhythm: regular rhythm Heart sounds: no murmurs and normal S1 and S2 GI Palpation (GI): Soft to palpation, nontender, no hepatomegaly and no splenomegaly Auscultation: normal bowel sounds Skin General skin exam: no rashes or lesions noted and dry skin Neuro General: oriented to person, oriented to place and oriented to time Cranial nerves: Yes Equal, round and reactive pupils present Speech: No Abnormal speech present Gait exam (Neuro): Normal gait present Motor exam (neuro): no tremor noted Extrem Right upper extremity: full ROM Left upper extremity: full ROM Right lower extremity: full ROM; no edema Left lower extremity: full ROM; no edema Psych Mental Status: mental status grossly normal Speech and movement: Normal speech and movement present Affect: normal affect Attitude: cooperative Thought process: Normal thought process present Assessment and Plan Assessment & Plan (1) HTN (hypertension): Code(s): I10 - Essential (primary) hypertension Qualifiers: Hypertension type: essential hypertension Qualified Code(s): I10 - Essential (primary) hypertension Plan: Blood pressure elevated today in office. He reports that blood pressures are stable at home, He reports having high sodium meal before his appointment. He will monitor blood pressure at home with goal blood pressure remain below 140/90 .. (2) H/O ulcerative colitis: Code(s): Z87.19 - Personal history of other diseases of the digestive system Plan: Followed by global transportation manager, did have a repeat colonoscopy in 2022 showing mild active colitis.. Otherwise he denies any rapid weight loss, abdominal pain or increase soft watery stools or blood in the stools. (3) HLD (hyperlipidemia): Code(s): E78.5 - Hyperlipidemia, unspecified Qualifiers: Hyperlipidemia type: mixed hyperlipidemia Qualified Code(s): E78.2 - Mixed hyperlipidemia Plan: Patient's most recent lipid panel showing slight borderline high total cholesterol.. Will continue to work on lifestyle modifications to reduce his high cholesterol foods. Goal LDL to be below 160 (4) Anemia of chronic disease: Code(s): D63.8 - Anemia in other chronic diseases classified elsewhere Plan: Noted chronic anemia likely anemia of chronic disease. Normal MCV. Will continue to follow CBC. (5) Impaired glucose metabolism: Code(s): R73.09 - Other abnormal glucose Plan: Patient will continue on lifestyle and dietary modifications to reduce his fasting blood sugar. Orders: Orders Lipid Panel 08/23/23 E78.2 - Mixed hyperlipidemia Complete Blood Count no Diff 08/23/23 D63.8 - Anemia in other chronic diseases classified elsewhere Comprehensive [place]. Panel Fast 08/23/23 I10 - Essential (primary) hypertension Patient Instructions: Goals: Blood pressure to remain below 140/90 Barriers: Adherence to healthy eating habits and exercise per Coding Level of Care Code Est Pt Level 4 (50586) Diagnoses Essential hypertension I10 Hypertension type: essential hypertension H/O ulcerative colitis Z87.19 Mixed hyperlipidemia E78.2 Hyperlipidemia type: mixed hyperlipidemia Anemia of chronic disease D63.8 Impaired glucose metabolism R73.09 Additional Codes ARIADNE-7 Assessment Billing - ARIADNE-7 Assessment Tool: ARIADNE-7 Assessment [id number] ([id number])
[2023-08-23 13:59] VITALS: BP 146/96; PULSE 55; O2SAT 97; BMI 24.5
== END 2023-08-23 14:25 | disposition home or self-care (01) ==
PROVIDERS: PCP Physician Assistant; Visit Provider Physician Assistant
DX: I10 Essential (primary) hypertension (principal); Z87.19 Personal history of other diseases of the digestive system; E78.2 Mixed hyperlipidemia; D63.8 Anemia in other chronic diseases classified elsewhere; R73.09 Other abnormal glucose
CPT/HCPCS: 99214

== ENCOUNTER 2024-02-15 06:04 | Outpatient (REF) | payer MEDICARE, SELFPAY ==
[2024-02-15 06:49] LABS: Hematocrit 42.4 % (42.0-52.0); Hemoglobin 13.9 g/dl (14.0-18.0); Mean Corpuscular HGB Conc 32.8 g/dl (31.0-36.0); Mean Corpuscular Hemoglobin 30.5 pg (27.0-33.0); Mean Platelet Volume 11.6 fL (9.4-12.4); Platelet Count 267 X10*3/uL (160-400); Red Blood Count 4.56 X10*6/uL (4.60-5.80); Red Cell Distribution Width 12.7 % (11.0-16.0); White Blood Count 7.2 X10*3/uL (4.8-10.8)
[2024-02-15 07:12] LABS: Alanine Aminotransferase 22 U/L (0-40); Albumin Level 4.6 g/dL (3.5-5.0); Alkaline Phosphatase 80 U/L (39-117); Anion Gap 12 (12-20); Aspartate Amino Transferase 28 U/L (5-37); Bilirubin Total 0.7 mg/dL (0.0-1.0); Blood Urea Nitrogen 10 mg/dL (9-16); Calcium 10.3 mg/dL (8.4-10.2); Carbon Dioxide 33 mmol/L (22-29); Chloride 96 mmol/L (96-108); Cholesterol 215 mg/dL (<200); Estimated Glomerular Filt Rate > 60; Glucose Fasting 108 mg/dL (60-99); HDL Cholesterol 54 mg/dL (>40); LDL Cholesterol Calculated 141 mg/dL (<100); Potassium 3.7 mmol/L (3.3-5.1); Sodium 137 mmol/L (135-145); Total Protein 7.4 g/dL (6.5-8.0); Triglycerides 102 mg/dL (<150)
== END 2024-02-15 06:05 | disposition home or self-care (01) ==
LOC: HO.LAB 06:04
PROVIDERS: PCP Physician Assistant; Visit Provider Physician Assistant
DX: I10 Essential (primary) hypertension (principal); D63.8 Anemia in other chronic diseases classified elsewhere; E78.2 Mixed hyperlipidemia
CPT/HCPCS: 36415; 80053; 80061; 85027

== ENCOUNTER 2024-02-25 14:59 | Outpatient (AMB) | payer MEDICARE, SELFPAY ==
[2024-02-25 15:13] VITALS: BP 144/88; PULSE 55; O2SAT 97; BMI 24.5
--- NOTE | 2024-02-25 15:13 | A.OFFPC_ITS ---
Vital Signs 3 02/25/24 15:13 Height 5 ft 9 in Weight 166 lb BMI 24.5 BP 144/88 H Blood Pressure Location Lt brachial Position Sitting Pulse 55 Pulse Source Pulse Oximeter Pulse Oximetry (%) 97 Oxygen Delivery Method Room Air Intake Visit Reasons: f/u HTN Actuary Required: No Accompanied by: Self / Same As Patient Allergies tamsulosin Adverse Reaction (Intermediate, Verified 02/25/24 15:23) fatigue Medication List - Last Reconciled 02/25/24 by Teto Lucero PA-C balsalazide (Colazal) 2,250 mg PO TID bqmnrktcdr-jhycopoto-monpwqjuy 40-5-25 mg 1 tab PO DAILY Tobacco use date assessed: 08/23/23 Fall risk assessment: No Falls in past year Last assessed Fall Risk: 02/25/24 Dental Screening Dental Screen Date: 08/23/23 HPI f/u HTN 2 HPI0 Details Surya is a 74y/o M here today for a f/u visit . Patient has a past medical history of hypertension, colitis, hyperlipidemia. Concern--> reports a several year history of left lateral tenderness to light touch. Did see a nurses medical assistants phlebotomists for a skin lesion in the area that was removed that was benign pathology. Continues to have a very sensitive area over the left lateral calf. PLAN: We did discuss perhaps trying an EMG to evaluate for neuropathy though patient will like to hold off on this for now. BPH:? He reports he does continue to have nocturia at times and some weakness of stream. Most recent PSA normal .. Inflammatory bowel disease: Continues to follow gastroenterology and gets colonoscopy with biopsy showing some mild active colitis. Still from time to time has is some lower abdominal pain and loose stools though reports has been manageable.. ? . ? Hypertension; today's blood pressure in office elevated, does seldomly checks blood pressures at home and reports normal readings. Seems to have an element of white coat hypertension. ?He denies any chest pain, dizziness, shortness of breath, lower extremity edema. .? He reports his diet has not been compliant with hypertension diet has had a lot sodium over the holiday season.? .. Hyperlipidemia:? Most recent lipid panel showing slightly borderline high cholesterol. He does admit to some dietary indiscretion over the winter. Will continue to work on lifestyle modifications to reduce his cholesterol. Laboratory Tests 08/03/23 02/15/24 06:27 06:09 Hgb 13.9 L Creatinine 0.78 Fasting Glucose 104 H 108 H Cholesterol 208 H 215 H PFS Medical History Right inguinal hernia Ulcerative colitis BPH (benign prostatic hyperplasia) HLD (hyperlipidemia) HTN (hypertension) Surgical History History of right inguinal hernia repair (~09/01/22) History of left inguinal hernia repair (~08/23/21) History of colonoscopy Family History Father AAA (abdominal aortic aneurysm) Hypertension Mother AAA (abdominal aortic aneurysm) Daughter In good health Brother In good health Social History Housing: House Alcohol intake: current Alcohol intake frequency: a few times a month Alcohol type: beer Patient Tobacco Use Status: Former Tobacco user Tobacco use type: Cigarette e-Cigarette/Vaping Use: Never Used Second Hand Smoke Exposure: No service: No Current occupational status: employed 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 How many drinks containing alcohol do you have on a typical day when you are drinking?: 1 or 2 3. How often do you have six or more drinks on one occasion?: Never Total Score: 0 ARIADNE-7 AMB Questionnaire ARIADNE-7 Date ARIADNE - 7 assessed: 08/23/23 Source: Developed by Drs. Curt Gonsalez, Monet Rios, Bang Marrero and colleagues, with an educational anupama from [employer]. Review of Systems Const Denies headache(s) Eyes Denies loss of vision ENT Denies vertigo, Denies dizziness, Denies headache(s) and Denies sore throat Card Denies chest pain, Denies leg edema and Denies lightheadedness Resp Denies cough, Denies hemoptysis and Denies wheezing GI Denies abdominal pain, Denies melena, Denies constipation, Denies diarrhea and Denies vomiting Denies dysuria, Denies urinary frequency and Denies urinary urgency Musc Denies arthralgias, Denies joint swelling, Denies numbness and Denies tingling Neuro Denies Abnormal speech present, Denies behavioral changes, Denies vertigo, Denies dizziness, Denies headache(s), Denies loss of vision, Denies memory loss, Denies numbness and Denies tingling Psych Denies anxiety, Denies behavioral changes, Denies depression, Denies memory loss and Denies panic attacks Scot/Lymph Denies easy bleeding and Denies easy bruising Aller/Immun Denies wheezing Physical exam (Primary Care) Vital Signs: Last Vital Signs Pulse 55 02/25/24 15:13 BP 144/88 H 02/25/24 15:13 Pulse Ox 97 02/25/24 15:13 Oxygen Delivery Method Room Air 02/25/24 15:13 BMI result Body Mass Index 24.5 Tobacco/Smoking Status: Tobacco use Status Tobacco use date assessed 08/23/23 02/25/24 15:14 Patient Tobacco Use Status Former Tobacco user 02/25/24 15:14 Tobacco use type Cigarette 02/25/24 15:14 e-Cigarette/Vaping Use Never Used 02/25/24 15:14 Thrive Assessment: Date of Thrive Assessment Date Thrive assessed 08/23/23 02/25/24 15:14 Const General: healthy appearing, no acute distress, alert and awake Nutritional Appearance: well nourished Orientation/consciousness: oriented to person, oriented to place and oriented to time HENMT Ears: TM's normal bilaterally General nose exam: Normal nasal mucous membranes and turbinates present Eyes Conjunctivae: conjunctivae normal Sclerae: sclerae normal Pupils: Equal, round and reactive pupils present Neck Neck: Yes no lymphadenopathy and Yes no JVD Thyroid: Thyroid normal Carotids: no bruits Resp Effort & Inspection: normal respiratory effort and not tachypneic Auscultation: no crackles, no rales, no rhonchi and no wheezes Cardio Rate: regular rate Rhythm: regular rhythm Heart sounds: no murmurs and normal S1 and S2 GI Palpation (GI): Soft to palpation, nontender, no hepatomegaly and no splenomegaly Auscultation: normal bowel sounds Skin General skin exam: no rashes or lesions noted and dry skin Neuro General: oriented to person, oriented to place and oriented to time Cranial nerves: Yes Equal, round and reactive pupils present Speech: No Abnormal speech present Gait exam (Neuro): Normal gait present Motor exam (neuro): no tremor noted Extrem Right upper extremity: full ROM Left upper extremity: full ROM Right lower extremity: full ROM; no edema Left lower extremity: full ROM; no edema Ankle/foot/toe images: 2 1. LOCALIZED AREA SENSITIVE TO LIGHT TOUCH. NO NOTABLE ECCHYMOSIS, ERYTHEMA OR EDEMA. Psych Mental Status: mental status grossly normal Speech and movement: Normal speech and movement present Affect: normal affect Attitude: cooperative Thought process: Normal thought process present Office Procedures Flu Questionnaire Does the patient have a severe egg allergy?: No Immunizations Fluarix Triv [id number] (PF) 45 mcg (15 mcg x 3)/0.5 mL IM syringe Performing Provider: Teto Lucero PA-C Performing Location[place] [facility] Documented (not given) by: POPEYE Ryan on 02/25/24 15:14 Reason Not Given: Received Previously Coding Level of Care Code Est Pt Level 4 (21060) Diagnoses Essential hypertension I10 Hypertension type: essential hypertension Mixed hyperlipidemia E78.2 Hyperlipidemia type: mixed hyperlipidemia Impaired glucose metabolism R73.09 Neuralgia of left lower extremity M79.2 Assessment & Plan Assessment & Plan (1) HTN (hypertension): Code(s): I10 - Essential (primary) hypertension Category: Medical Qualifiers: Hypertension type: essential hypertension Qualified Code(s): I10 - Essential (primary) hypertension Plan: Patient's blood pressure is slightly elevated today in office. At home blood pressures are reported as stable. Does have an element of white coat hypertension it seems. He will continue his current dose of blood pressure medication with goal blood pressure to remain below 140/90 (2) HLD (hyperlipidemia): Code(s): E78.5 - Hyperlipidemia, unspecified Category: Medical Qualifiers: Hyperlipidemia type: mixed hyperlipidemia Qualified Code(s): E78.2 - Mixed hyperlipidemia Plan: Most recent lipid panel showing borderline high total cholesterol. He will work on lifestyle and dietary modifications to reduce his total cholesterol and LDL. Goal LDL to be below 130 (3) Impaired glucose metabolism: Code(s): R73.09 - Other abnormal glucose Category: Medical Plan: Has a several year history of impaired fasting glucose. He will continue working on lifestyle and dietary modifications. (4) Neuralgia of left lower extremity: Code(s): M79.2 - Neuralgia and neuritis, unspecified Category: Medical Plan: As per HPI continues to have a left lower extremity neuralgia. He has been using topical treatments and coverage/compression which has been helpful. We discussed perhaps doing an EMG to evaluate for a nerve issue though he would like to hold off on this for now. Orders: Orders 2 Hemoglobin A1c Today R73.09 - Other abnormal glucose Microalbumin, Random (w Creat) Today I10 - Essential (primary) hypertension Prostate Specific Antigen Scr Today N40.1 - Benign prostatic hyperplasia with lower urinary tract symptoms, R35.0 - Frequency of micturition, Z12.5 - Encounter for screening for malignant neoplasm of prostate Influenza [id number] Immunization Today Z23 - Encounter for immunization Complete Blood Count no Diff Today Z87.19 - Personal history of other diseases of the digestive system Lipid Panel Today E78.2 - Mixed hyperlipidemia Comprehensive [place]. Panel Fast Today E78.2 - Mixed hyperlipidemia Medications: Refilled 2 nbmdvdyljn-gzzpebodi-xnblkgqak 40-5-25 mg 1 tab PO DAILY 90 tabs 3RF Patient Instructions: Goal: Blood pressure to be below 140/90 Barriers: Adherence to physical activity and healthy eating habits
== END 2024-02-25 15:41 | disposition home or self-care (01) ==
LOC: HO.HMCH 14:59
PROVIDERS: PCP Physician Assistant; Visit Provider Physician Assistant
DX: I10 Essential (primary) hypertension (principal); E78.2 Mixed hyperlipidemia; R73.09 Other abnormal glucose; M79.2 Neuralgia and neuritis, unspecified; Z23 Encounter for immunization

== ENCOUNTER → 2024-02-25 14:59 | Outpatient (BNVA) | payer MEDICARE, SELFPAY | PROVIDERS: PCP Physician Assistant; Visit Provider Physician Assistant | DX: I10 Essential (primary) hypertension (principal); E78.2 Mixed hyperlipidemia; R73.09 Other abnormal glucose; M79.2 Neuralgia and neuritis, unspecified | CPT/HCPCS: 90471; 99212 ==

== ENCOUNTER 2024-08-08 06:26 | Outpatient (REF) | payer MEDICARE, SELFPAY ==
[2024-08-08 07:10] LABS: Hematocrit 41.3 % (42.0-52.0); Hemoglobin 13.4 g/dl (14.0-18.0); Mean Corpuscular HGB Conc 32.4 g/dl (31.0-36.0); Mean Corpuscular Hemoglobin 30.4 pg (27.0-33.0); Mean Corpuscular Volume 93.7 fL (80.0-98.0); Mean Platelet Volume 11.6 fL (9.4-12.4); Platelet Count 247 X10*3/uL (160-400); Red Blood Count 4.41 X10*6/uL (4.60-5.80); Red Cell Distribution Width 12.3 % (11.0-16.0)
[2024-08-08 07:21] LABS: Estimated Average Glucose 117 mg/dL; Hemoglobin A1C 139.4812 umol/L; Hemoglobin A1c % 5.7 % (<6.0); Total Hemoglobin (HGBA1C) 3607.1593 umol/L
[2024-08-08 07:27] LABS: Alanine Aminotransferase 23 U/L (0-40); Albumin Level 4.4 g/dL (3.5-5.0); Alkaline Phosphatase 76 U/L (39-117); Anion Gap 13 (12-20); Aspartate Amino Transferase 31 U/L (5-37); Bilirubin Total 0.8 mg/dL (0.0-1.0); Blood Urea Nitrogen 12 mg/dL (9-16); Calcium 9.7 mg/dL (8.4-10.2); Carbon Dioxide 29 mmol/L (22-29); Chloride 99 mmol/L (96-108); Cholesterol 212 mg/dL (<200); Estimated Glomerular Filt Rate > 60; Glucose Fasting 107 mg/dL (60-99); HDL Cholesterol 47 mg/dL (>40); LDL Cholesterol Calculated 144 mg/dL (<100); Potassium 3.8 mmol/L (3.3-5.1); Sodium 137 mmol/L (135-145); Triglycerides 105 mg/dL (<150)
[2024-08-08 07:32] LABS: Creatinine Urine 166.67 mg/dL; Microalbum/Creatinine Ratio Ur 22.1 ug/mg cr (<30)
[2024-08-08 07:48] LABS: Prostate Specific Antigen Scr 2.45 ng/mL (<0.05-4.0)
== END 2024-08-08 06:27 | disposition home or self-care (01) ==
LOC: HO.LAB 06:26
PROVIDERS: PCP Physician Assistant; Visit Provider Physician Assistant
DX: Z12.5 Encounter for screening for malignant neoplasm of prostate (principal); N40.1 Benign prostatic hyperplasia with lower urinary tract symptoms; R35.0 Frequency of micturition; E78.2 Mixed hyperlipidemia; R73.09 Other abnormal glucose; I10 Essential (primary) hypertension; Z87.19 Personal history of other diseases of the digestive system
CPT/HCPCS: 36415; 80053; 80061; 82043; 82570; 83036; 84153; 85027

== ENCOUNTER 2024-08-25 14:15 | Outpatient (AMB) | payer MEDICARE, SELFPAY ==
--- NOTE | 2024-08-25 14:17 | MHC.PC.OV ---
Vital Signs 08/25/24 14:19 Height 5 ft 9 in Weight 163 lb BMI 24.1 BP 130/66 Blood Pressure Location Lt brachial Position Sitting Pulse 54 Pulse Source Pulse Oximeter Temp 97.7 F Temp Source Temporal Artery Scan Pulse Oximetry (%) 98 Oxygen Delivery Method Room Air Intake Visit Reasons: f/u HTN Intake Note: Patient is here to follow up on HTN. 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: Not Required per policy Accompanied by: Self / Same As Patient Allergies tamsulosin Adverse Reaction (Intermediate, Verified 08/25/24 14:29) fatigue Medication List - Last Reconciled 08/25/24 by Teto Lucero PA-C balsalazide (Colazal) 2,250 mg PO TID gzrfncjngn-fzfqisggl-fmfkychjg 40-5-25 mg 1 tab PO DAILY Tobacco use date assessed: 08/25/24 Fall risk assessment: No Falls in past year Last assessed Fall Risk: 08/25/24 Dental Screening Dental Screen Date: 08/25/24 Did you have a dental visit in the last 12 months?: Yes Did you have a dental problem in the last 6 months where you did not have access to dental care?: No Was dental information given to patient?: Patient has dentist HPI f/u HTN HPI Details Surya is a 74y/o M here today for a f/u visit . Patient has a past medical history of hypertension, colitis, hyperlipidemia. Concern--> reports a several year history of left lateral tenderness to light touch. Did see a wardrobe specialist for a skin lesion in the area that was removed that was benign pathology. Continues to have a very sensitive area over the left lateral calf. PLAN: We did discuss perhaps trying an EMG to evaluate for neuropathy BPH:? He reports he does continue to have nocturia at times and some weakness of stream. Most recent PSA normal .. Inflammatory bowel disease: Continues to follow gastroenterology and gets colonoscopy by annually with biopsy showing some mild active colitis. Has upcoming evaluation with colonoscopy. ? . ? Hypertension; today's blood pressure acceptable in office. does seldomly checks blood pressures at home and reports normal readings. Seems to have an element of white coat hypertension. ?He denies any chest pain, dizziness, shortness of breath, lower extremity edema. .? He reports his diet has not been compliant with hypertension diet has had a lot sodium over the holiday season.? Of note mild microalbuminuria noted .. Hyperlipidemia:? Most recent lipid panel showing slightly borderline high cholesterol. He does admit to some dietary indiscretion over the winter. Will continue to work on lifestyle modifications to reduce his cholesterol. Laboratory Tests 08/03/23 02/15/24 08/08/24 06:24 06:09 06:50 RBC 4.56 L Hgb 13.9 L Fasting Glucose 108 H Hemoglobin A1c % Cholesterol 215 H PSA Screen Urine Microalbumin 25.0 37.0 08/08/24 06:51 RBC 4.41 L Hgb 13.4 L Fasting Glucose 107 H Hemoglobin A1c % 5.7 Cholesterol 212 H PSA Screen 2.45 Urine Microalbumin [facility] Medical History Right inguinal hernia Ulcerative colitis BPH (benign prostatic hyperplasia) HLD (hyperlipidemia) HTN (hypertension) Surgical History History of right inguinal hernia repair (~09/01/22) History of left inguinal hernia repair (~08/23/21) History of colonoscopy Family History Father AAA (abdominal aortic aneurysm) Hypertension Mother AAA (abdominal aortic aneurysm) Daughter In good health Brother In good health Social History Housing: House Alcohol intake: current Alcohol intake frequency: a few times a month Alcohol type: beer Patient Tobacco Use Status: Former Tobacco user Tobacco use type: Cigarette e-Cigarette/Vaping Use: Never Used Second Hand Smoke Exposure: Yes service: No Current occupational status: employed 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 1. Little interest or pleasure in doing things: not at all 2. Feeling down, depressed, or hopeless: not at all 3. Trouble falling or staying asleep, or sleeping too much: not at all 4. Feeling tired or having little energy: not at all 5. Poor appetite or overeating: not at all 6. Feeling bad about yourself - or that you are a failure or have let yourself or your family down: not at all 7. Trouble concentrating on things, such as reading the newspaper or watching television: not at all 8. Moving or speaking so slowly that other people could have noticed. Or the opposite - being so fidgety or restless that you have been moving around a lot more than usual: not at all 9. Thoughts that you would be better off or of hurting yourself in some way: not at all Total score: 0 Depression Screening Interpretation: Negative Depression Screening Done: Yes [id number] - PHQ-9 Billing: Yes Source: Developed by Drs. Curt Gonsalez, Monet Rios, Bang Marrero and colleagues, with an educational anupama from [employer]. Thrive Questionnaire Date Thrive assessed: 08/25/24 I am a: Patient What is your living situation today?: I have a steady place to live Within the past 12 months, did the food you bought not last and you didn't have the money to get more?: Never true Within the past 12 months, did you worry whether your food would run out before you got money to buy more?: Never true Do you have trouble paying for medicines?: No Do you have trouble getting transportation to medical appointments?: No Do you have trouble paying your heating and electricity bill?: No Do you have trouble taking care of your child, family member or friend?: No Do you have trouble with day-to-day activities such as bathing, preparing meals, shopping, managing finances, etc.?: No Are you currently unemployed and looking for a job?: Yes Are you interested in more education?: No Please select the resources that you would like help with: None Currently or been in a relationship where the following occur: Controlled Emotionally THRIVE Score: 1 AUDIT C Alcohol Use Questionnaire (AUDIT-C) 1. How often do you have a drink containing alcohol?: 2-4 times a month Total Score: 2 ARIADNE-7 AMB Questionnaire ARIADNE-7 Date ARIADNE - 7 assessed: 08/25/24 Feeling nervous, anxious, or on edge: 0 = Not at all Not being able to stop or control worryin = Not at all Worrying too much about different things: 0 = Not at all Trouble relaxin = Not at all Being so restless that it is hard to sit still: 0 = Not at all Becoming easily annoyed or irritable: 0 = Not at all Feeling afraid as if something awful might happen: 0 = Not at all Total ARIADNE-7 score (0-4 normal; 5-9 mild; 10-14 moderate; 15-21 severe): 0 Source: Developed by Drs. Curt Gonsalez, Monet Rios, Bang Marrero and colleagues, with an educational anupama from [employer]. Review of Systems Const Denies headache(s) Eyes Denies loss of vision ENT Denies vertigo, Denies dizziness, Denies headache(s) and Denies sore throat Card Denies chest pain, Denies leg edema and Denies lightheadedness Resp Denies cough, Denies hemoptysis and Denies wheezing GI Denies abdominal pain, Denies melena, Denies constipation, Denies diarrhea and Denies vomiting Denies dysuria, Denies urinary frequency and Denies urinary urgency Musc Denies arthralgias, Denies joint swelling, Denies numbness and Denies tingling Neuro Denies Abnormal speech present, Denies behavioral changes, Denies vertigo, Denies dizziness, Denies headache(s), Denies loss of vision, Denies memory loss, Denies numbness and Denies tingling Psych Denies anxiety, Denies behavioral changes, Denies depression, Denies memory loss and Denies panic attacks Scot/Lymph Denies easy bleeding and Denies easy bruising Aller/Immun Denies wheezing Physical exam (Primary Care) Vital Signs: Last Vital Signs Temp 97.7 F 08/25/24 14:19 Pulse 54 08/25/24 14:19 BP 130/66 08/25/24 14:19 Pulse Ox 98 08/25/24 14:19 Oxygen Delivery Method Room Air 08/25/24 14:19 BMI result Body Mass Index 24.1 Tobacco/Smoking Status: Tobacco use Status Tobacco use date assessed 08/25/24 08/25/24 14:24 Patient Tobacco Use Status Former Tobacco user 08/25/24 14:24 Tobacco use type Cigarette 08/25/24 14:24 e-Cigarette/Vaping Use Never Used 04/28/25 14:24 PHQ-9: PHQ-9 Score PHQ-9: Total score 0 08/25/24 14:30 Depression Screening Interpretation: Negative Thrive Assessment: Date of Thrive Assessment Date Thrive assessed 08/25/24 08/25/24 14:24 Currently or been in a relationship where the following occur: Controlled Emotionally Const General: healthy appearing, no acute distress, alert and awake Nutritional Appearance: well nourished Orientation/consciousness: oriented to person, oriented to place and oriented to time HENMT Ears: TM's normal bilaterally General nose exam: Normal nasal mucous membranes and turbinates present Eyes Conjunctivae: conjunctivae normal Sclerae: sclerae normal Pupils: Equal, round and reactive pupils present Neck Neck: Yes no lymphadenopathy and Yes no JVD Thyroid: Thyroid normal Carotids: no bruits Resp Effort & Inspection: normal respiratory effort and not tachypneic Auscultation: no crackles, no rales, no rhonchi and no wheezes Cardio Rate: regular rate Rhythm: regular rhythm Heart sounds: no murmurs and normal S1 and S2 GI Palpation (GI): Soft to palpation, nontender, no hepatomegaly and no splenomegaly Auscultation: normal bowel sounds Skin General skin exam: no rashes or lesions noted and dry skin Neuro General: oriented to person, oriented to place and oriented to time Cranial nerves: Yes Equal, round and reactive pupils present Speech: No Abnormal speech present Gait exam (Neuro): Normal gait present Motor exam (neuro): no tremor noted Extrem Right upper extremity: full ROM Left upper extremity: full ROM Right lower extremity: full ROM; no edema Left lower extremity: full ROM; no edema Psych Mental Status: mental status grossly normal Speech and movement: Normal speech and movement present Affect: normal affect Attitude: cooperative Thought process: Normal thought process present Coding Level of Care Code Est Pt Level 4 (37341) Diagnoses Essential hypertension I10 Hypertension type: essential hypertension Mixed hyperlipidemia E78.2 Hyperlipidemia type: mixed hyperlipidemia Impaired glucose metabolism R73.09 Neuralgia of left lower extremity M79.2 Additional Codes PHQ-9 - 84623 - PHQ-9 Billing: Yes ([id number]) Assessment & Plan Assessment & Plan (1) HTN (hypertension): Code(s): I10 - Essential (primary) hypertension Category: Medical Qualifiers: Hypertension type: essential hypertension Qualified Code(s): I10 - Essential (primary) hypertension Plan: Patient's blood pressure acceptable today in office At home blood pressures are reported as stable. He reports home blood pressure readings are stable. He will continue his current dose of blood pressure medication with goal blood pressure to remain below 140/90 (2) HLD (hyperlipidemia): Code(s): E78.5 - Hyperlipidemia, unspecified Category: Medical Qualifiers: Hyperlipidemia type: mixed hyperlipidemia Qualified Code(s): E78.2 - Mixed hyperlipidemia Plan: Most recent lipid panel showing borderline high total cholesterol. He will work on lifestyle and dietary modifications to reduce his total cholesterol and LDL. Goal LDL to be below 130 (3) Impaired glucose metabolism: Code(s): R73.09 - Other abnormal glucose Category: Medical Plan: Has a several year history of impaired fasting glucose. Patient's A1c 5.7. He will continue working on lifestyle and dietary modifications. (4) Neuralgia of left lower extremity: Code(s): M79.2 - Neuralgia and neuritis, unspecified Category: Medical Plan: As per HPI continues to have a left lower extremity neuralgia. He has been using topical treatments and coverage/compression which has been helpful. We discussed perhaps doing an EMG to evaluate for a nerve issue though he would like to hold off on this for now. Orders: Orders NE electromyogram (EMG) 08/25/24 M79.2 - Neuralgia and neuritis, unspecified Complete Blood Count no Diff 08/25/24 E78.2 - Mixed hyperlipidemia NE nerve conduction velocity 08/25/24 M79.2 - Neuralgia and neuritis, unspecified Hemoglobin A1c 08/25/24 R73.09 - Other abnormal glucose Lipid Panel 08/25/24 E78.2 - Mixed hyperlipidemia Comprehensive [place]. Panel Fast 08/25/24 E78.2 - Mixed hyperlipidemia Referrals Pain Management Referral M79.2 - Neuralgia and neuritis, unspecified Patient Instructions: Goal: Blood pressure to remain below 140/90 Barriers: Adherence to physical activity and healthy eating habits
[2024-08-25 14:19] VITALS: BP 130/66; PULSE 54; TEMP 36.5; O2SAT 98; BMI 24.1
== END 2024-08-25 14:48 | disposition home or self-care (01) ==
LOC: HO.HMCH 14:15
PROVIDERS: PCP Physician Assistant; Visit Provider Physician Assistant
DX: I10 Essential (primary) hypertension (principal); E78.2 Mixed hyperlipidemia; R73.09 Other abnormal glucose; M79.2 Neuralgia and neuritis, unspecified

== ENCOUNTER → 2024-08-25 14:15 | Outpatient (BNVA) | payer MEDICARE, SELFPAY | PROVIDERS: PCP Physician Assistant; Visit Provider Physician Assistant | DX: I10 Essential (primary) hypertension (principal); E78.2 Mixed hyperlipidemia; R73.09 Other abnormal glucose; M79.2 Neuralgia and neuritis, unspecified | CPT/HCPCS: 96127; 99212 ==

== ENCOUNTER 2024-09-03 08:19 | Outpatient (AMB) | payer MEDICARE, SELFPAY ==
--- NOTE | 2024-09-03 08:31 | A.OFFVIS_ITS ---
Vital Signs 09/03/24 08:32 Height 5 ft 9 in Weight 165 lb BMI 24.4 BP 187/82 H Blood Pressure Location Lt brachial Position Sitting Respiration 16 Pulse 114 H Pulse Source Pulse Oximeter Pulse Oximetry (%) 99 Oxygen Delivery Method Room Air Intake Visit Reasons: Neuralgia and neuritis, unspecified Apprenticeship Representative Required: No Allergies tamsulosin Adverse Reaction (Intermediate, Verified 09/03/24 08:34) fatigue Medication List - Last Reconciled 09/03/24 by Ivelisse Ray LPN balsalazide (Colazal) 2,250 mg PO TID looiglueon-pebiotfrv-gyccyiuyd 40-5-25 mg 1 tab PO DAILY HPI Comments Details: The patient is a 74-year-old male presenting with pain in the lower leg, possibly related to nerve irritation. He has experienced this discomfort for over five years, noting an increase in intensity and a persistence of symptoms over time. Initially, the patient ignored the symptoms, as they appeared manageable and non-disruptive. However, recent exacerbations have prompted renew ed concern. The discomfort has been described as sharp and needle-like, focusing on a specific area of the leg, especially sensitive to touch and tactile contact. The repetitive occurrence of pain after periods of inactivity, particularly notable at night upon rising, suggests a pattern that warrants further investigation. A previous intervention involving the removal of a small benign lesion provided transient relief but did not address the underlying issue. The lack of trauma history makes the onset of this condition less predictable. This condition has not significantly impacted the patient's overall daily activities but does generate significant discomfort, prompting recent medical evaluations. Ongoing investigation into nerve pathology serves as the primary focus, with consideration of diagnostic procedures to further elucidate the precise extent and nature of the nerve involvement. Denies back pain. Denies redness, swelling, warmth at site. - Onset: Chronic pain existing for over five years - Quality: Sharp, stinging, needle-prick sensation - Location: Focused on a localized area in the right lower leg - Radiation: No radiation to the back or foot - Exacerbating Factors: Weight bearing, tactile contact from clothing or movement - Relieving Factors: Decreased with ambulation post-exacerbation - Affect: Pain impacts the patient's comfort and sensory experience - Analgesia: OTC medications and Topical treatments attempted with limited relief; pain remains sharp and stingy - Adverse Effects: None reported from current attempted treatments - Activities of Daily Living: Pain is primarily discomforting rather than disabling - Aberrant Drug Related Behaviors: None reported or discussed [facility] Medical History Right inguinal hernia Ulcerative colitis BPH (benign prostatic hyperplasia) HLD (hyperlipidemia) HTN (hypertension) Surgical History History of right inguinal hernia repair (~09/01/22) History of left inguinal hernia repair (~08/23/21) History of colonoscopy Family History Father AAA (abdominal aortic aneurysm) Hypertension Mother AAA (abdominal aortic aneurysm) Daughter In good health Brother In good health Social History Housing: House Alcohol intake: current Alcohol intake frequency: a few times a month Alcohol type: beer Patient Tobacco Use Status: Former Tobacco user Tobacco use type: Cigarette e-Cigarette/Vaping Use: Never Used Second Hand Smoke Exposure: Yes service: No Current occupational status: employed 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 Answers questions appropriately. Fully engaged in examination. Skin: warm, dry, intact HEENT: Normocephalic. Hearing intact. Cardiac: External chest normal in appearance. Respiratory: No cough, audible wheezing or stridor. Abdomen: without gross distension. MS: No obvious swelling or deformities. Able to transition from sit to stand unassisted. Ambulates with bilaterally normal heel strike and toe off RLE: strength 5/5. No redness, swelling, wounds, rashes, lesions. Small spider veins noted though not where pain is present. 3cm X 5cm area noted where there is increased tenderness to palpation and sensitivity to touch without any notable changes in skin color, texture, hair distribution, temperature. Small circular scar noted at previous benign lesion excision site. Neurological: Oriented to person, place, time and situation. Thought process intact. No gait abnormalities appreciated. Psychiatric: Appropriate mood and affect. Good judgment and insight. Assessment & Plan Assessment & Plan (1) Neuropathy of left lower extremity: Code(s): G57.92 - Unspecified mononeuropathy of left lower limb Category: Medical (2) Left leg pain: Code(s): M79.605 - Pain in left leg Category: Medical Plan For the suspected nerve-related pain in the lower leg, I have advised a diagnostic nerve block to ascertain the involvement of specific nerve pathways. This procedure, guided by ultrasound, will offer immediate feedback regarding the effectiveness of nerve blockade and, therefore, confirm etiology. If successful, I will discuss long-term management through potential temporary nerve stimulators to adjust sensory perception. This plan aligns with the patient's wishes to minimize medication use and addresses the practical concerns of insurance coverage for the procedure. Following this diagnostic phase, further interventions will be considered based on response. During the visit, I discussed the patient's chronic lower leg pain, suspected to involve nerve irritation. We reviewed the expected outcomes of a diagnostic nerve block, which includes short-term relief and confirmation of nerve involvement. The patient expressed understanding of the low-risk nature of this procedure and agreed to proceed contingent on insurance approval. I provided assurance regarding the benign nature of the minor interventions planned, such as minimal invasive risk. Follow-up would be scheduled post-procedure to assess the efficacy of the nerve block and discuss subsequent steps, such as a temporary nerve stimulator if needed. Alternative pain management strategies, including medication options, were reviewed, although the patient preferred to minimize medication usage at this time. Will schedule for ultrasound-guided left diagnostic common peroneal nerve block, if patient reports positive results plan for sprint PNS. Patient was informed and verbally consented to the use of an ambient scribe for clinic note documentation during this visit. Patient Instructions: - Await contact for scheduling the diagnostic nerve block pending insurance approval - Maintain a pain diary to track pain relief post-procedure - Avoidance of [id number] topicals that have shown little effect - Report any changes in the severity or nature of the pain - Discuss further options if symptoms persist or worsen Coding Level of Care Code New Pt Level 4 (91609) Complex EM visit Add On G2211 Diagnoses Neuropathy of left lower extremity G57.92 Left leg pain M79.605
[2024-09-03 08:32] VITALS: BP 187/82; PULSE 114; RESP 16; O2SAT 99; BMI 24.4
== END 2024-09-03 09:03 | disposition home or self-care (01) ==
LOC: HO.PMC 08:20
PROVIDERS: PCP Physician Assistant; Referring Provider Physician Assistant; Visit Provider Registered Nurse Emergency
DX: G57.92 Unspecified mononeuropathy of left lower limb (principal); M79.605 Pain in left leg
CPT/HCPCS: 99204; G2211

== ENCOUNTER → 2024-09-03 08:19 | Outpatient (BNVA) | payer MEDICARE, SELFPAY | PROVIDERS: PCP Physician Assistant; Referring Provider Physician Assistant; Visit Provider Registered Nurse Emergency | DX: G57.92 Unspecified mononeuropathy of left lower limb (principal); M79.605 Pain in left leg | CPT/HCPCS: 99202 ==

== ENCOUNTER 2024-09-09 08:32 | Outpatient (REF) | payer MEDICARE, SELFPAY ==
--- NOTE | 2024-09-09 08:35 | EMG_ITS ---
Left tibial and peroneal motor studies were performed. Left superficial peroneal, sural, and median and lateral plantar mixed sensory studies were performed. Tibial H-reflex was obtained, and needle examination was performed. 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 MD DANNI Rosales/HEATHER / [id number]
== END 2024-09-09 08:33 | disposition home or self-care (01) ==
LOC: HO.NEURO 08:32
PROVIDERS: PCP Physician Assistant; Visit Provider Physician Assistant
DX: G57.92 Unspecified mononeuropathy of left lower limb (principal)
CPT/HCPCS: 95886; 95910

== ENCOUNTER 2024-09-24 11:35 | Outpatient (AMB) | payer MEDICARE, SELFPAY ==
--- NOTE | 2024-09-24 11:47 | A.OFFVIS_ITS ---
Vital Signs 09/24/24 11:48 Weight 165 lb BP 169/81 H Blood Pressure Location Rt brachial Position Sitting Respiration 18 Pulse 59 Pulse Source Pulse Oximeter Pulse Oximetry (%) 100 Oxygen Delivery Method Room Air Intake Visit Reasons: EMG results C.O.D. Audit Clerk Required: No Allergies tamsulosin Adverse Reaction (Intermediate, Verified 09/24/24 11:47) fatigue HPI Comments Details: The patient is a 74-year-old male presenting with neuropathy, review recent MRI. The discomfort in his leg has been consistent, and diagnostic EMG studies indicate neuropathy, specifically affecting the tibial and peroneal motor nerves. The etiology of the neuropathy is unclear. The patient has a strong preference for avoiding chronic medication use due to concerns about side effects and the complexity of managing multiple prescriptions, a common challenge in older adults. He prefers exploring non-pharmacological treatment options to manage his symptoms. - Onset and Timing: Chronic discomfort in the leg - Quality and Character: Persistent sensation due to nerve irritation - Primary Location: Leg - Exacerbating Factors: None specifically mentioned - Relieving Factors: None specifically mentioned - Affect: The neuropathy impacts the patient's quality of life and is a source of ongoing concern. - Analgesia: Prefers to avoid medications such as gabapentin or Lyrica due to side effects. - Adverse Effects: Concern about potential side effects of medications. - Activities of Daily Living: The neuropathy contributes to discomfort, limiting the patient's daily activities. - Aberrant Drug Related Behaviors: None reported. Prior: The patient is a 74-year-old male presenting with pain in the lower leg, possibly related to nerve irritation. He has experienced this discomfort for over five years, noting an increase in intensity and a persistence of symptoms over time. Initially, the patient ignored the symptoms, as they appeared manageable and non-disruptive. However, recent exacerbations have prompted renewed concern. The discomfort has been described as sharp and needle-like, focusing on a specific area of the leg, especially sensitive to touch and tactile contact. The repetitive occurrence of pain after periods of inactivity, particularly notable at night upon rising, suggests a pattern that warrants further investigation. A previous intervention involving the removal of a small benign lesion provided transient relief but did not address the underlying issue. The lack of trauma history makes the onset of this condition less predictable. This condition has not significantly impacted the patient's overall daily activities but does generate significant discomfort, prompting recent medical evaluations. Ongoing investigation into nerve pathology serves as the primary focus, with consideration of diagnostic procedures to further elucidate the precise extent and nature of the nerve involvement. Denies back pain. Denies redness, swelling, warmth at site. - Onset: Chronic pain existing for over five years - Quality: Sharp, stinging, needle-prick sensation - Location: Focused on a localized area in the right lower leg - Radiation: No radiation to the back or foot - Exacerbating Factors: Weight bearing, tactile contact from clothing or movement - Relieving Factors: Decreased with ambulation post-exacerbation - Affect: Pain impacts the patient's comfort and sensory experience - Analgesia: OTC medications and Topical treatments attempted with limited relief; pain remains sharp and stingy - Adverse Effects: None reported from current attempted treatments - Activities of Daily Living: Pain is primarily discomforting rather than disabling - Aberrant Drug Related Behaviors: None reported or discussed [facility] Medical History Right inguinal hernia Ulcerative colitis BPH (benign prostatic hyperplasia) HLD (hyperlipidemia) HTN (hypertension) Surgical History History of right inguinal hernia repair (~09/01/22) History of left inguinal hernia repair (~08/23/21) History of colonoscopy Family History Father AAA (abdominal aortic aneurysm) Hypertension Mother AAA (abdominal aortic aneurysm) Daughter In good health Brother In good health Social History Housing: House Alcohol intake: current Alcohol intake frequency: a few times a month Alcohol type: beer Patient Tobacco Use Status: Former Tobacco user Tobacco use type: Cigarette e-Cigarette/Vaping Use: Never Used Second Hand Smoke Exposure: Yes service: No Current occupational status: employed 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 Answers questions appropriately. Fully engaged in examination. Skin: warm, dry, intact HEENT: Normocephalic. Hearing intact. Cardiac: External chest normal in appearance. Respiratory: No cough, audible wheezing or stridor. Abdomen: without gross distension. MS: No obvious swelling or deformities. Able to transition from sit to stand unassisted. Ambulates with bilaterally normal heel strike and toe off LLE: No redness, swelling, wounds, rashes, lesions. Small spider veins noted though not where pain is present. 3cm X 5cm area noted where there is increased tenderness to palpation and sensitivity to touch without any notable changes in skin color, texture, hair distribution, temperature. Small circular scar noted at previous benign lesion excision site. Neurological: Oriented to person, place, time and situation. Thought process intact. No gait abnormalities appreciated. Psychiatric: Appropriate mood and affect. Good judgment and insight. Results Reviewed Results Reviewed: 09/09/24 EMG Left tibial and peroneal motor studies were performed. Left superficial peroneal, sural, and median and lateral plantar mixed sensory studies were performed. Tibial H-reflex was obtained, and needle examination was performed. 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 Assessment & Plan Assessment & Plan (1) Neuropathy of left lower extremity: Code(s): G57.92 - Unspecified mononeuropathy of left lower limb Category: Medical (2) Left leg pain: Code(s): M79.605 - Pain in left leg Category: Medical Plan I have recommended a diagnostic ultrasound-guided nerve block, specifically targeting the common peroneal nerve. This procedure is intended to provide temporary relief from the persistent sensation, guiding further treatment options such as nerve stimulation if successful. The patient prefers non-pharmacological interventions and is concerned about the side effects of chronic medication use. We will assess the effectiveness of the nerve block and plan accordingly, with a follow-up scheduled to review the outcomes. During our discussion, I explained the diagnosis of neuropathy, confirmed by EMG findings, and outlined the proposed management plan. We considered a nerve block as the first step in treatment, with the potential for using a nerve stimulator if the block proves effective. I highlighted the benefits of this approach, including avoiding long-term medication use and its side effects. The patient agreed to proceed with the nerve block, understanding the temporary nature of the relief and the need for follow-up. We discussed the importance of maintaining a pain diary to track response to the procedure, and I assured the patient that we would reassess and adjust the treatment plan as needed. Patient was informed and verbally consented to the use of an ambient scribe for clinic note documentation during this visit. Patient Instructions: - Schedule an appointment for the ultrasound-guided nerve block. - Maintain a pain diary to monitor response to the nerve block. - Follow up as instructed to assess the effectiveness of the procedure. - Contact the office if there are any questions or concerns regarding the treatm ent plan. Coding Level of Care Code Est Pt Level 3 (45242) Complex EM visit Add On G2211 Diagnoses Neuropathy of left lower extremity G57.92 Left leg pain M79.605
[2024-09-24 11:48] VITALS: BP 169/81; PULSE 59; RESP 18; O2SAT 100
== END 2024-09-24 12:08 | disposition home or self-care (01) ==
LOC: HO.PMC 11:36
PROVIDERS: PCP Physician Assistant; Visit Provider Registered Nurse Emergency
DX: G57.92 Unspecified mononeuropathy of left lower limb (principal); M79.605 Pain in left leg
CPT/HCPCS: 99213; G2211

== ENCOUNTER → 2024-09-24 11:35 | Outpatient (BNVA) | payer MEDICARE, SELFPAY | PROVIDERS: PCP Physician Assistant; Visit Provider Registered Nurse Emergency | DX: M79.605 Pain in left leg (principal); G57.92 Unspecified mononeuropathy of left lower limb | CPT/HCPCS: 99212 ==

== ENCOUNTER 2025-02-13 06:05 | Outpatient (REF) | payer MEDICARE, SELFPAY ==
--- OUTSIDE RECORDS SUMMARY | 2025-02-13 06:09 | XMS_ITS | Patient Health Record ---
Author Organization [facility] Address [address] [place] [id number] Care Team Providers Care Newspaper Library Manager Name Role Phone Esthela(inactive) [place] MEMBRENO Primary Care Provider U Curt Webber Unavailable [phone] Reason For Referral No Information Medications Medication SIG (Take, Route, Frequency, Duration) Notes Start Date End Date Status Colazal 750 MG 3 capsules Orally Th ree times a day; Duration: 90 days Active Tribenzor Active Balsalazide Disodium 750 MG 3 capsules O rally Three times a day; Duration: 90 days 12/10/2013 Active Simvastatin Active Problems Problem Type SNOMED Code ICD Code Onset Dates Problem Status W/U Status Risk Notes Problem Ulcerative colitis (20460361) Unspecified ulcerative colitis (556.9) Active confirmed Problem Ulcerative colitis (93732168) Ulcerative colitis (556.9) Active confirmed Plan Of Treatment No Information Insurance Providers Payer Name Payer Address Payer Phone Subscriber Number Group Number Insured Name Patient Relationship to Insured Coverage Start Date Coverage End Date [facility] [address] [place], [place] [id number] LORETO FANG Self - patient is the insured Medical (General) History Medical History History ICD Code Ulcerative colitis-pancoliti s diagnosed in 08/2007-no polyps--the procedure was complicated by the development of SQ air on his abdominal wall and thigh requiring hospitalization and observation, but no surgery; he had a neg. colonoscopy in 1998 HTN Hyperlipidemia Denies PR,DM,CVA,Lung disease,renal dise ase C.dificile infection in 2009 BPH with nocturia Surgical History Surgery Date(Month/Year)
[2025-02-13 07:24] LABS: Hematocrit 43.5 % (42.0-52.0); Hemoglobin 14.0 g/dl (14.0-18.0); Mean Corpuscular HGB Conc 32.2 g/dl (31.0-36.0); Mean Corpuscular Hemoglobin 29.7 pg (27.0-33.0); Mean Corpuscular Volume 92.4 fL (80.0-98.0); NRBC Abs Auto 0.000 X10*3/uL (0.0-0.012); NRBC Pct Auto 0.0 /100WBC (0.0-0.2); Platelet Count 259 X10*3/uL (160-400); Red Blood Count 4.71 X10*6/uL (4.60-5.80); White Blood Count 7.0 X10*3/uL (4.8-10.8)
[2025-02-13 07:43] LABS: Total Hemoglobin (HGBA1C) 3738.7039 umol/L
[2025-02-13 07:58] LABS: Alanine Aminotransferase 20 U/L (0-40); Albumin Level 4.8 g/dL (3.5-5.0); Alkaline Phosphatase 83 U/L (39-117); Anion Gap 11 (12-20); Aspartate Amino Transferase 29 U/L (5-37); Blood Urea Nitrogen 11 mg/dL (9-16); Calcium 9.8 mg/dL (8.4-10.2); Carbon Dioxide 33 mmol/L (22-29); Chloride 98 mmol/L (96-108); Cholesterol 213 mg/dL (<200); Estimated Glomerular Filt Rate > 60; HDL Cholesterol 45 mg/dL (>40); Potassium 3.8 mmol/L (3.3-5.1); Sodium 138 mmol/L (135-145); Total Protein 7.2 g/dL (6.5-8.0); Triglycerides 97 mg/dL (<150)
== END 2025-02-13 06:06 | disposition home or self-care (01) ==
LOC: HO.LAB 06:05
PROVIDERS: PCP Physician Assistant; Visit Provider Physician Assistant
DX: E78.2 Mixed hyperlipidemia (principal); R73.09 Other abnormal glucose
CPT/HCPCS: 36415; 80053; 80061; 83036; 85027

== ENCOUNTER 2025-02-24 14:45 | Outpatient (AMB) | payer MEDICARE, SELFPAY ==
--- NOTE | 2025-02-24 14:57 | MHC.PC.OV ---
Vital Signs 02/24/25 14:58 Height 5 ft 9 in Weight 162 lb 4 oz BMI 24.0 BP 120/60 Blood Pressure Location Lt brachial Position Sitting Pulse 58 Pulse Source Pulse Oximeter Temp 97.5 F Temp Source Temporal Artery Scan Pulse Oximetry (%) 98 Oxygen Delivery Method Room Air Intake Visit Reasons: f/u HTN Intake Note: Patient is here to follow up on HTN. 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 Patient has a past medical history of hypertension, colitis, hyperlipidemia. 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 He is not interested in any treatment at this time as he feels it is manageable. .. Inflammatory bowel disease: Continues to follow gastroenterology and gets colonoscopy by annually with biopsy showing some mild active colitis. Phani is not interested in any further colonoscopies due to risk of perforation as he is now 75 years old. He has not had any recurrent symptoms his of his colitis as long as he continues on his medication. ? . ? Hypertension; today's blood pressure acceptable in office. does seldomly checks blood pressures at home and reports normal readings. Seems to have an element of white coat hypertension. ?He denies any chest pain, dizziness, shortness of breath, lower extremity edema. .? He reports his diet has not been compliant with hypertension diet has had a lot sodium over the holiday season.? Of note mild microalbuminuria noted .. Hyperlipidemia:? Most recent lipid panel showing slightly borderline high cholesterol. He does admit to some dietary indiscretion over the winter. Will continue to work on lifestyle modifications to reduce his cholesterol. Laboratory Tests 08/08/24 02/13/25 06:51 06:19 RBC 4.41 L 4.71 Hgb 13.4 L 14.0 Creatinine 0.74 Fasting Glucose 107 H 104 H Hemoglobin A1c % 5.7 5.7 Cholesterol 213 H LDL Cholesterol, C alc 149 H [facility] Medical History Right inguinal hernia Ulcerative colitis BPH (benign prostatic hyperplasia) HLD (hyperlipidemia) HTN (hypertension) Surgical History History of right inguinal hernia repair (~09/01/22) History of left inguinal hernia repair (~08/23/21) History of colonoscopy Family History Father AAA (abdominal aortic aneurysm) Hypertension Mother AAA (abdominal aortic aneurysm) Daughter In good health Brother In good health Social History Housing: House Alcohol intake: current Alcohol intake frequency: a few times a month Alcohol type: beer Patient Tobacco Use Status: Former Tobacco user Tobacco use type: Cigarette e-Cigarette/Vaping Use: Never Used Second Hand Smoke Exposure: Yes service: No Current occupational status: employed 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- [employer] Cognitive needs: No Hearing needs: No Vision needs: Yes (Glasses) Questionnaire Thrive Questionnaire Date Thrive assessed: 08/25/24 I am a: Patient What is your living situation today?: I have a steady place to live Within the past 12 months, did the food you bought not last and you didn't have the money to get more?: Never true Within the past 12 months, did you worry whether your food would run out before you got money to buy more?: Never true Do you have trouble paying for medicines?: No Do you have trouble getting transportation to medical appointments?: No Do you have trouble paying your heating and electricity bill?: No Do you have trouble taking care of your child, family member or friend?: No Do you have trouble with day-to-day activities such as bathing, preparing meals, shopping, managing finances, etc.?: No Are you currently unemployed and looking for a job?: Yes Are you interested in more education?: No Please select the resources that you would like help with: None Currently or been in a relationship where the following occur: Controlled Emotionally THRIVE Score: 1 ARIADNE-7 AMB Questionnaire ARIADNE-7 Date ARIADNE - 7 assessed: 08/25/24 Source: Developed by Drs. Curt Gonsalez, Monet Rios, Bang Marrero and colleagues, with an educational anupama from [employer]. Review of Systems Const Denies headache(s) Eyes Denies loss of vision ENT Denies vertigo, Denies dizziness, Denies headache(s) and Denies sore throat Card Denies chest pain, Denies leg edema and Denies lightheadedness Resp Denies cough, Denies hemoptysis and Denies wheezing GI Denies abdominal pain, Denies melena, Denies constipation, Denies diarrhea and Denies vomiting Denies dysuria, Denies urinary frequency and Denies urinary urgency Musc Denies arthralgias, Denies joint swelling, Denies numbness and Denies tingling Neuro Denies Abnormal speech present, Denies behavioral changes, Denies vertigo, Denies dizziness, Denies headache(s), Denies loss of vision, Denies memory loss, Denies numbness and Denies tingling Psych Denies anxiety, Denies behavioral changes, Denies depression, Denies memory loss and Denies panic attacks Scot/Lymph Denies easy bleeding and Denies easy bruising Aller/Immun Denies wheezing Physical exam (Primary Care) Vital Signs: Last Vital Signs Temp 97.5 F 02/24/25 14:58 Pulse 58 02/24/25 14:58 BP 120/60 02/24/25 14:58 Pulse Ox 98 02/24/25 14:58 Oxygen Delivery Method Room Air 02/24/25 14:58 BMI result Body Mass Index 24.0 Tobacco/Smoking Status: Tobacco use Status Tobacco use date assessed 02/24/25 02/24/25 15:05 Patient Tobacco Use Status Former Tobacco user 02/24/25 15:05 Tobacco use type Cigarette 02/24/25 15:05 e-Cigarette/Vaping Use Never Used 02/24/25 15:05 Thrive Assessment: Date of Thrive Assessment Date Thrive assessed 08/25/24 02/24/25 15:05 Currently or been in a relationship where the following occur: Controlled Emotionally Const General: healthy appearing, no acute distress, alert and awake Nutritional Appearance: well nourished Orientation/consciousness: oriented to person, oriented to place and oriented to time HENMT Ears: TM's normal bilaterally General nose exam: Normal nasal mucous membranes and turbinates present Eyes Conjunctivae: conjunctivae normal Sclerae: sclerae normal Pupils: Equal, round and reactive pupils present Neck Neck: Yes no lymphadenopathy and Yes no JVD Thyroid: Thyroid normal Carotids: no bruits Resp Effort & Inspection: normal respiratory effort and not tachypneic Auscultation: no crackles, no rales, no rhonchi and no wheezes Cardio Rate: regular rate Rhythm: regular rhythm Heart sounds: no murmurs and normal S1 and S2 GI Palpation (GI): Soft to palpation, nontender, no hepatomegaly and no splenomegaly Auscultation: normal bowel sounds Skin General skin exam: no rashes or lesions noted and dry skin Neuro General: oriented to person, oriented to place and oriented to time Cranial nerves: Yes Equal, round and reactive pupils present Speech: No Abnormal speech present Gait exam (Neuro): Normal gait present Motor exam (neuro): no tremor noted Extrem Right upper extremity: full ROM Left upper extremity: full ROM Right lower extremity: full ROM; no edema Left lower extremity: full ROM; no edema Psych Mental Status: mental status grossly normal Speech and movement: Normal speech and movement present Affect: normal affect Attitude: cooperative Thought process: Normal thought process present Immunizations pneumoc 20-zoey conj-dip cr(PF) 0.5 mL IM syringe Performing Provider: Teto Lucero PA-C [facility] Administered by: Nena Fields LPN on 02/24/25 15:56 Dose Route Admin Location Dispensed Lot Number Expiration Date [facility] 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 0.5 mL IM Left Deltoid 0.5 mL [id number] 02/27/26 0881-4225-19 [employer] Total Dispensed Waste 0.5 mL 0 % VIS Given Date VIS Provided VIS Publication Date 02/24/25 Single Vaccine 24 Eligibility Eligibility Date Funding Source Not [facility] Eligible 02/24/25 Private Coding Level of Care Code Est Pt Level 4 (80147) Diagnoses Essential hypertension I10 Hypertension type: essential hypertension Mixed hyperlipidemia E78.2 Hyperlipidemia type: mixed hyperlipidemia Impaired glucose metabolism R73.09 Sensory neuropathy G62.9 Assessment & Plan Assessment & Plan (1) HTN (hypertension): Code(s): I10 - Essential (primary) hypertension Category: Medical Qualifiers: Hypertension type: essential hypertension Qualified Code(s): I10 - Essential (primary) hypertension Plan: Patient's blood pressure acceptable today in office At home blood pressures are reported as stable. He reports home blood pressure readings are stable. He will continue his current dose of blood pressure medication with goal blood pressure to remain below 140/90 (2) HLD (hyperlipidemia): Code(s): E78.5 - Hyperlipidemia, unspecified Category: Medical Qualifiers: Hyperlipidemia type: mixed hyperlipidemia Qualified Code(s): E78.2 - Mixed hyperlipidemia Plan: Most recent lipid panel showing borderline high total cholesterol. He will work on lifestyle and dietary modifications to reduce his total cholesterol and LDL. Goal LDL to be below 130 (3) Impaired glucose metabolism: Code(s): R73.09 - Other abnormal glucose Category: Medical Plan: Has a several year history of impaired fasting glucose. Patient's A1c 5.7. Fasting blood sugar slightly elevated. He will continue working on lifestyle and dietary modifications. (4) Sensory neuropathy: Code(s): G62.9 - Polyneuropathy, unspecified Category: Medical Plan: Recent nerve testing in the lower extremity showing sensory neuropathy. He reports he will continue to manage. Orders: Orders Lipid Panel 02/24/25 E78.2 - Mixed hyperlipidemia Microalbumin, Random (w Creat) 02/24/25 I10 - Essential (primary) hypertension Comprehensive [place]. Panel Fast 02/24/25 I10 - Essential (primary) hypertension Complete Blood Count no Diff 02/24/25 I10 - Essential (primary) hypertension Prostate Specific Antigen Scr 02/24/25 I10 - Essential (primary) hypertension, Z12.5 - Encounter for screening for malignant neoplasm of prostate Pneumococcal 20 Immunization 02/24/25 I10 - Essential (primary) hypertension, Z23 - Encounter for immunization
[2025-02-24 14:58] VITALS: BP 120/60; PULSE 58; TEMP 36.4; O2SAT 98; BMI 24.0
--- OUTSIDE RECORDS SUMMARY | 2025-02-24 19:12 | XMS_ITS | Patient Health Record ---
Author Organization [facility] Address [address] [place] [address] Care Team Providers Care Security Patrol Driver Name Role Phone Esthela(inactive) [place] MEMBRENO Primary Care Provider U Curt Webber Unavailable [phone] Reason For Referral No Information Medications Medication [...] W/U Status Risk Notes Problem Ulcerative colitis (60772920) Unspecified ulcerative colitis (556.9) Active confirmed Problem Ulcerative colitis (75378712) Ulcerative colitis (556.9) Active confirmed Plan Of Treatment No Information Insurance Providers Payer Name Payer Address Payer Phone Subscriber Number Group Number Insured Name Patient Relationship to Insured Coverage Start Date Coverage End Date [facility] [address] [place], [place] [id number] LORETO FANG Self - patient is the insured Medical (General) History Medical History History ICD Code Ulcerative colitis-pancoliti s diagnosed in 08/2007-no polyps--the procedure was complicated by the development of SQ air on his abdominal wall and thigh requiring hospitalization and observation, but no surgery; he had a neg. colonoscopy in 1998 HTN Hyperlipidemia Denies DE,DM,CVA,Lung disease,renal dise ase C.dificile infection in 2009 BPH with nocturia Surgical History Surgery Date(Month/Year)
== END 2025-02-24 15:49 | disposition home or self-care (01) ==
LOC: HO.HMCH 14:46
PROVIDERS: PCP Physician Assistant; Visit Provider Physician Assistant
DX: I10 Essential (primary) hypertension (principal); E78.2 Mixed hyperlipidemia; R73.09 Other abnormal glucose; G62.9 Polyneuropathy, unspecified

== ENCOUNTER → 2025-02-24 14:45 | Outpatient (BNVA) | payer MEDICARE, SELFPAY | PROVIDERS: PCP Physician Assistant; Visit Provider Physician Assistant | DX: I10 Essential (primary) hypertension (principal); E78.2 Mixed hyperlipidemia; R73.09 Other abnormal glucose; G62.9 Polyneuropathy, unspecified; Z23 Encounter for immunization | CPT/HCPCS: 90471; 90677; 99212 ==